=== PATIENT | female | born 1960 | race American Indian/Alaskan Native ===

== ENCOUNTER 2018-08-23 22:10 | Inpatient (IN) | payer MEDICAID ==
[2018-08-23] MEDS ORDERED: Acetaminophen 325 MG Tab PO ONE (22:43)
--- NOTE | 2018-08-23 22:49 | EDM.PDOC ---
<Enriqueta Sol Joelle - Last Filed: 08/23/18 22:44> ED HPI GENERAL MEDICAL PROBLEM - General Chief Complaint: Neurological Problem Stated Complaint: POSS SEIZURE Time Seen by Provider: 08/23/18 22:32 Source of Information: Reports: Patient, RN Notes Reviewed History Limitations: Reports: No Limitations - History of Present Illness INITIAL COMMENTS - FREE TEXT/NARRATIVE: Patient is a 58-year-old female who presents to the ED for evaluation of a possible seizure. The patient states that at about 7:00 this evening she developed full body shaking. She states she was home alone at this occurred. She also states she was in bed and started shaking all over uncontrollably. She states that she could get up and walk but was still shaking at this time, so she decided to go back to bed. She also notes that this lasted about a half hour. The patient states that she feels somewhat tired now, and does not feel her normal self. The patient states she did not lose control of her bladder after this. She was aware of what was happening when it was happening and after it was happening. The patient does note that she does not have a history of seizures. She also states that she has a history of COPD, and has had a cold for around one or 2 months. The patient states that she has had some low- grade fevers at home as well. The patient is alert and oriented 3. Headache Pain Score (Numeric/FACES): 8 Posterior Back Pain Score (Numeric/FACES): 8 - Related Data Allergies Allergy/AdvReac Type Severity Reaction Status Date / Time codeine Allergy Rash Verified 03/10/15 00:43 Home Meds: Home Meds Hydrocodone/Acetaminophen [[place] 7.5-325] 1 each PO Q8H PRN #20 tablet 03/10/15 [Rx] Albuterol [Proventil HFA] 1 puff INH ASDIRECTED 08/23/18 [History] Budesonide/Formoterol [Symbicort 160-4.5 MCG] 1 puff INH DAILY 08/23/18 [History ] Citalopram Hydrobromide [Celexa] 0 mg PO DAILY 08/23/18 [History] Famotidine 20 mg PO DAILY 08/23/18 [History] Gabapentin [Neurontin] 6,090 mg PO QID 08/23/18 [History] Oxybutynin 5 mg PO DAILY 08/23/18 [History] Past Medical History Respiratory History: Reports: COPD, Intubation, Previous, Other (See Below) Other Respiratory History: trach due to overdose Musculoskeletal History: Reports: Back Pain, Chronic Neurological History: Reports: Neuropathy, Peripheral Psychiatric History: Reports: Depression Social & Family History - Tobacco Use Smoking Status *Q: Current Every Day Smoker Years of Tobacco use: 4 Packs/Tins Daily: 0.4 - Caffeine Use Caffeine Use: Reports: Coffee, Soda - Recreational Drug Use Recreational Drug Use: No Other Recreational Drug Type: over dose on script meds about 6 yrs ago ED ROS GENERAL - Review of Systems Review Of Systems: See Below Constitutional: Reports: Fever, Chills (rigors), Fatigue HEENT: Reports: No Symptoms Respiratory: Reports: Cough Cardiovascular: Reports: No Symptoms Endocrine: Reports: No Symptoms GI/Abdominal: Reports: No Symptoms : Reports: No Symptoms Musculoskeletal: Reports: No Symptoms Skin: Reports: No Symptoms Neurological: Reports: Headache. Denies: Pre-Existing Deficit, Syncope Psychiatric: Reports: No Symptoms Hematologic/Lymphatic: Reports: No Symptoms Immunologic: Reports: No Symptoms ED EXAM, SEPSIS - Physical Exam Exam: See Below Exam Limited By: No Limitations General Appearance: Alert, WD/WN, No Apparent Distress, Lethargic (patient is easily arousable and answers questions appropriately.) Throat/Mouth: Normal Inspection, Normal Lips, Normal Teeth, Normal Gums, Normal Oropharynx, Normal Voice, No Airway Compromise Head: Atraumatic, Normocephalic Neck: Normal Inspection Respiratory/Chest: No Respiratory Distress, No Accessory Muscle Use, Chest Non- Tender, Decreased Breath Sounds (diffuse bilaterally), Rhonchi (mainly over right lung field, but present bilateral) Cardiovascular: Normal Peripheral Pulses, Regular Rate, Rhythm, No Murmur GI/Abdominal Exam: Normal Bowel Sounds, Soft, No Distention, No Mass, Tender ( generalized abdominal tenderness) Extremities: Normal Inspection, Normal Capillary Refill Neurological: Alert, Oriented, Normal Cognition, No Motor/Sensory Deficits Psychiatric: Normal Affect, Normal Mood Skin: Warm (pt is warm to the touch), Dry, Intact, Normal Color, No Rash Course - Vital Signs Last Recorded V/S: Last Vital Signs Temp 37.1 C 08/23/18 23:40 Pulse 86 08/23/18 22:42 Resp 26 H 08/23/18 22:42 BP 100/71 08/23/18 22:42 Pulse Ox 93 L 08/23/18 23:50 - Orders/Labs/Meds Orders: Active Orders 24 hr Category Date Time Status Patient Status [ADT] Routine ADT 08/24/18 00:39 Active RT Aerosol Therapy [RC] ASDIRECTED Care 08/23/18 22:55 Active Chest 2V [CR] Stat Exams 08/23/18 22:42 Taken CULTURE BLOOD [BC] Stat Lab 08/23/18 23:05 Received CULTURE BLOOD [BC] Stat Lab 08/23/18 23:05 Received CULTURE URINE [RM] Stat Lab 08/23/18 22:56 Received Sodium Chloride 0.9% [Normal Saline] 1,000 ml Med 08/23/18 23:00 Active IV ASDIRECTED Sodium Chloride 0.9% [Saline Flush] Med 08/23/18 22:54 Active 10 ml FLUSH ASDIRECTED PRN Blood Culture x2 Reflex Set [OM.PC] Stat Oth 08/23/18 22:41 Ordered Peripheral IV Insertion Adult [OM.PC] Routine Oth 08/23/18 22:54 Ordered Medication Orders Sodium Chloride (Normal Saline) 1,000 mls @ 150 mls/hr IV ASDIRECTED [facility] Last Admin: 08/23/18 23:41 Dose: 150 mls/hr Sodium Chloride (Saline Flush) 10 ml FLUSH ASDIRECTED PRN PRN Reason: Keep Vein Open Last Admin: 08/23/18 23:41 Dose: 10 ml Labs: Laboratory Tests 08/23/18 08/23/18 08/23/18 Range/Units 22:56 22:56 23:05 WBC 13.39 H (3.98-10.04) K/mm3 RBC 5.65 H (3.98-5.22) M/mm3 Hgb 11.6 (11.2-15.7) gm/L Hct 38.0 (34.1-44.9) % MCV 67.3 L (79.4-94.8) fl MCH 20.5 L (25.6-32.2) pg MCHC 30.5 L (32.2-35.5) g/dl RDW Std Deviation 43.3 (36.4-46.3) fL Plt Count 317 (182-369) K/mm3 MPV 11.7 (9.4-12.3) fl Neutrophils % (Manual) 76 H (40-60) % Band Neutrophils % 1 (0-10) % Lymphocytes % (Manual) 16 L (20-40) % Atypical Lymphs % 0 % Monocytes % (Manual) 7 (2-10) % Eosinophils % (Manual) 0 L (0.7-5.8) % Basophils % (Manual) 0 L (0.1-1.2) Platelet Estimate Adequate Plt Morphology Comment See note Hypochromasia 2+ moderate Microcytosis 2+ moderate Target Cells 1+ slight RBC Morph Comment Not Reportable Sodium (136-145) mEq/L Potassium (3.5-5.1) mEq/L Chloride (98-107) mEq/L Carbon Dioxide (21-32) mEq/L Anion Gap (5-15) BUN (7-18) mg/dL Creatinine (0.55-1.02) mg/dL Est Cr Clr Drug Dosing mL/min Estimated GFR (MDRD) (>60) mL/min BUN/Creatinine Ratio (14-18) Glucose (74-106) mg/dL Lactic Acid (0.4-2.0) mmol/L Calcium (8.5-10.1) mg/dL Magnesium (1.8-2.4) mg/dl Total Bilirubin (0.2-1.0) mg/dL AST (15-37) U/L ALT (14-59) U/L Alkaline Phosphatase (46-116) U/L C-Reactive Protein (<1.0) mg/dL NT-Pro-B Natriuret Pep (0-125) pg/mL Total Protein (6.4-8.2) g/dl Albumin (3.4-5.0) g/dl Globulin gm/dL Albumin/Globulin Ratio (1-2) Urine Color Yellow (Yellow) Urine Appearance Cloudy H (Clear) Urine pH 6.5 (5.0-8.0) Ur Specific [place] 1.015 (1.005-1.030) Urine Protein Trace H (Negative) Urine Glucose (UA) Negative (Negative) Urine Ketones Negative (Negative) Urine Occult Blood Negative (Negative) Urine Nitrite Positive H (Negative) Urine Bilirubin Negative (Negative) Urine Urobilinogen 0.2 (0.2-1.0) Ur Leukocyte Esterase 2+ H (Negative) Urine RBC Not seen (0-5) /hpf Urine WBC 5-10 H (0-5) /hpf Urine WBC Clumps Rare (NOT SEEN) /hpf Ur Squamous Epith Cells 0-5 (0-5) /hpf Urine Bacteria Many H (FEW) /hpf Hyaline Casts 0-5 (0-5) /lpf Urine Mucus Rare (FEW) /hpf Urine Opiates Screen Negative (UTJADH=540) Ur Buprenorphine Scrn Negative (CUTOFF=10) Ur Oxycodone Screen Negative (DFZ9ZX=553) Urine Methadone Screen Negative (WEYINC=564) Ur Propoxyphene Screen Negative (MWCDQI=556) Ur Barbiturates Screen Negative (YIUKII=372) Ur Tricyclics Screen Negative (QADSTE=671) Ur Phencyclidine Scrn Negative (CUTOFF=25) Ur Amphetamine Screen Negative (JNPFIG=898) U Methamphetamines Scrn Negative (PSIROO=845) U Benzodiazepines Scrn Presumptive positive H (AVAGOS=876) U Cocaine Metab Screen Negative (OBINMZ=611) U Marijuana (THC) Screen Negative (CUTOFF=50) 08/23/18 08/23/18 08/23/18 Range/Units 23:05 23:05 23:05 WBC (3.98-10.04) K/mm3 RBC (3.98-5.22) M/mm3 Hgb (11.2-15.7) gm/L Hct (34.1-44.9) % MCV (79.4-94.8) fl MCH (25.6-32.2) pg MCHC (32.2-35.5) g/dl RDW Std Deviation (36.4-46.3) fL Plt Count (182-369) K/mm3 MPV (9.4-12.3) fl Neutrophils % (Manual) (40-60) % Band Neutrophils % (0-10) % Lymphocytes % (Manual) (20-40) % Atypical Lymphs % % Monocytes % (Manual) (2-10) % Eosinophils % (Manual) (0.7-5.8) % Basophils % (Manual) (0.1-1.2) Platelet Estimate Plt Morphology Comment Hypochromasia Microcytosis Target Cells RBC Morph Comment Sodium 137 (136-145) mEq/L Potassium 3.9 (3.5-5.1) mEq/L Chloride 102 (98-107) mEq/L Carbon Dioxide 25 (21-32) mEq/L Anion Gap 13.9 (5-15) BUN 12 (7-18) mg/dL Creatinine 1.0 (0.55-1.02) mg/dL Est Cr Clr Drug Dosing 51.96 mL/min Estimated GFR (MDRD) 57 (>60) mL/min BUN/Creatinine Ratio 12.0 L (14-18) Glucose 118 H (74-106) mg/dL Lactic Acid 1.1 (0.4-2.0) mmol/L Calcium 8.9 (8.5-10.1) mg/dL Magnesium 2.0 (1.8-2.4) mg/dl Total Bilirubin 0.8 (0.2-1.0) mg/dL AST 30 (15-37) U/L ALT 29 (14-59) U/L Alkaline Phosphatase 218 H (46-116) U/L C-Reactive Protein 0.7 (<1.0) mg/dL NT-Pro-B Natriuret Pep 54 (0-125) pg/mL Total Protein 7.8 (6.4-8.2) g/dl Albumin 3.6 (3.4-5.0) g/dl Globulin 4.2 gm/dL Albumin/Globulin Ratio 0.9 L (1-2) Urine Color (Yellow) Urine Appearance (Clear) Urine pH (5.0-8.0) Ur Specific [place] (1.005-1.030) Urine Protein (Negative) Urine Glucose (UA) (Negative) Urine Ketones (Negative) Urine Occult Blood (Negative) Urine Nitrite (Negative) Urine Bilirubin (Negative) Urine Urobilinogen (0.2-1.0) Ur Leukocyte Esterase (Negative) Urine RBC (0-5) /hpf Urine WBC (0-5) /hpf Urine WBC Clumps (NOT SEEN) /hpf Ur Squamous Epith Cells (0-5) /hpf Urine Bacteria (FEW) /hpf Hyaline Casts (0-5) /lpf Urine Mucus (FEW) /hpf Urine Opiates Screen (YJSUOI=196) Ur Buprenorphine Scrn (CUTOFF=10) Ur Oxycodone Screen (EOD4TH=336) Urine Methadone Screen (URFNUH=721) Ur Propoxyphene Screen (WSTVAJ=652) Ur Barbiturates Screen (ZOUQOX=167) Ur Tricyclics Screen (EZSCMU=045) Ur Phencyclidine Scrn (CUTOFF=25) Ur Amphetamine Screen (ZBUOOX=557) U Methamphetamines Scrn (QYTNMP=028) U Benzodiazepines Scrn (LNWZMY=199) U Cocaine Metab Screen (VODQKJ=458) U Marijuana (THC) Screen (CUTOFF=50) Meds: Medications Generic Name Dose Route Start Last Admin Trade Name Freq PRN Reason Stop Dose Admin Sodium Chloride 1,000 mls @ 150 mls/hr 08/23/18 23:00 08/23/18 23:41 Normal Saline IV 150 mls/hr ASDIRECTED KAILEE Administration Sodium Chloride 10 ml 08/23/18 22:54 08/23/18 23:41 Saline Flush FLUSH 10 ml ASDIRECTED PRN Administration Keep Vein Open Discontinued Medications Generic Name Dose Route Start Last Admin Trade Name Freq PRN Reason Stop Dose Admin Acetaminophen 650 mg 08/23/18 22:43 08/23/18 23:40 Tylenol PO 08/23/18 22:44 650 mg NOW ONE Administration Albuterol/Ipratropium 3 ml 08/23/18 22:55 08/23/18 23:02 Duoneb 3.0-0.5 Mg/3 Ml NEB 08/23/18 22:56 3 ml ONETIME ONE Administration - Re-Assessments/Exams Free Text/Narrative Re-Assessment/Exam: 08/23/18 22:53 Patient presents to the ED for evaluation of a possible seizure. Upon talking with the patient I do not believe that she did have a seizure at this time. Is more likely that she has a febrile illness that caused her to go into rigors. She states that she has had a cough with some fevers for the last month, and has a history of COPD. Have ordered a CBC, CMP, blood cultures 2, CRP, lactic acid, a UA, Urine drug screen, Magnesium, BNP, chest x-ray, IV fluids, Duoneb, O2 PRN and 650 mg Tylenol for initial management. This case was discussed with Dr. Giordano at this time and he will take over management from here. Departure - Departure Disposition: Admitted As Inpatient 68 Clinical Impression: Acute febrile illness, Pyelonephritis of left kidney, Hypoxia, Iron deficiency anemia COPD (chronic obstructive pulmonary disease) with emphysema Qualifiers: Emphysema type: panlobular Qualified Code(s): J43.1 - Panlobular emphysema - Discharge Information - My Orders Last 24 Hours: My Active Orders 08/23/18 22:56 CULTURE URINE [RM] Stat 08/24/18 00:39 Patient Status [ADT] Routine - Assessment/Plan Last 24 Hours: My Active Orders 08/23/18 22:56 CULTURE URINE [RM] Stat 08/24/18 00:39 Patient Status [ADT] Routine <Colby Giordano - Last Filed: 08/24/18 01:06> Course - Re-Assessments/Exams Free Text/Narrative Re-Assessment/Exam: 08/23/18 23:35 Care assumed from CHAVA Sol. Two-view chest x-ray is rotated significantly to the right side making the left hilum look more prominent than normal. Overall the lungs are clear. There is no sign of the consolidated pneumonia. The pulmonary arteries are fairly prominent bilaterally. Cardiac silhouette is normal. Part of the labs are back.White count is elevated at 13.39 with differential pending. Hemoglobin is low 11.6 with hematocrit of 38.0. MCV is low at 67.3 indicating significant and deficiency. Platelet count is 317,000. The urinalysis shows 2+ leukocyte esterase. It is also nitrate positive. Patient will be started on Rocephin 2 g IV. On my examination she has marked tenderness over the left costovertebral angle suggesting left-sided pyelonephritis as a cause of her rigors and chills. 08/24/18 00:21 Lactic acid returned at 1.1. Differential still not yet available on the hematology. The remainder of the slide for the urine shows 5- 10 WBCs per high-power field with many bacteria appreciated. Rare urine white blood cell clumps. The urine drug screen was positive for benzodiazepines. 08/24/18 00:48 Differential reveals 76% neutrophils and 1% band cells. There is 2+ hypochromasia 2+ microcytosis and 1+ target cells. This suggests some component of iron deficiency. This correlates with MCV very low at 67.3. I will order her total iron binding capacity and serum iron levels to be done in the morning with serum Ferritin. Discussed the case with Dr. Rolle gas operation manager hospitalist and the plan will be to admit her to the MedSurg floor. Patient will remain on oxygen at 2 L/m since her sats in the ED where around 90-92%. She has known quite significant COPD. Will also place her on DuoNeb every 6 hours while in hospital. She will start the Rocephin 2 g IV once she gets admitted to the med surgery floor. Bridge orders were written. Departure - Departure Time of Disposition: 01:04 Condition: Fair - Discharge Information *PRESCRIPTION DRUG MONITORING PROGRAM REVIEWED*: No *COPY OF PRESCRIPTION DRUG MONITORING REPORT IN PATIENT LORAINE: No - My Orders Last 24 Hours: My Active Orders 08/23/18 22:56 CULTURE URINE [RM] Stat 08/24/18 00:39 Patient Status [ADT] Routine - Assessment/Plan Last 24 Hours: My Active Orders 08/23/18 22:56 CULTURE URINE [RM] Stat 08/24/18 00:39 Patient Status [ADT] Routine
[2018-08-23] MEDS ORDERED: Sodium Chloride 0.9% 10 ML Syringe FLUSH PRN (22:54)
[2018-08-23] MEDS ORDERED: Albuterol/Ipratropium 3.0-0.5 MG/3 ML Neb Soln NEB ONE (22:55)
[2018-08-23] MEDS ORDERED: Sodium Chloride 0.9% 1,000 ML IV SCH (23:00)
[2018-08-24] MEDS ORDERED: Metoclopramide 10 MG/2 ML SDV IVPUSH PRN (01:40)
[2018-08-24] MEDS: Dextrose 5%-0.9% NaCl with KCl 1,000 ML IV SCH ×2 (02:17→10:40)
[2018-08-24] MEDS: cefTRIAXone 2 GM in Sodium Chloride 0.9% 100 ML IV SCH (02:18)
[2018-08-24] MEDS: Albuterol/Ipratropium 3.0-0.5 MG/3 ML Neb Soln NEB SCH ×4 (03:03→21:18)
[2018-08-24] MEDS: Ibuprofen 600 MG Tab PO PRN ×3 (05:01→18:43)
--- NOTE | 2018-08-24 06:37 | PCM.HP ---
H&P History of Present Illness - General Date of Service: 08/24/18 Admit Problem/Dx: Admission Diagnosis/Problem Admission Diagnosis/Problem Pyelonephritis Source of Information: Patient, Provider, RN, RN Notes Reviewed History Limitations: Reports: No Limitations - History of Present Illness Initial Comments - Free Text/Narative: Patricia Smith is a 58 yo female who presented to our ED in the overnight hours with concerns over possible seizure. She reports that around 1900 she developed full body shaking. She says she was in bed when this started and she was alone. She reports she got up and walked around and went back to bed and the whole episode lasted about a half hour. She reports she now feels tired. She did not lose bowel or bladder control and does not have a history of seizures. She reports she has a history of COPD and has a had a cold for one or 2 months. She also reports low-grade fevers at home. In the ED temp was 37.1 Celsius. Pulse 86. Respirations 26. Blood pressure 100/71. Pulse ox 93%. Labs were obtained showing a WBC of 13.39. Hemoglobin 11.6. Hematocrit 38. She is microcytic. Neutrophils are elevated at 76%. There is 1% band neutrophils noted. UA was positive with cloudy urine, trace protein, positive nitrite, 2+ leukocyte esterase, 5-10 WBCs, and many bacteria. UDS was obtained and was positive for benzodiazepines. Sodium was 137. Potassium 3.9. Chloride 102. Carbon dioxide 25. Anion gap is 13.9. BUN is 12. Creatinine 1.0. GFR was 57. Glucose was 118. Lactic acid 1.1. Calcium 8.9. Magnesium 2.0. Bilirubin 0.8. AST was 30, ALT 29, alkaline phosphatase 218. CRP was 0.7. ProBNP was 54. Protein was 7.8. Albumin 3.6. As noted in the ED note she likely did not have a seizure and it is more probable that she was having rigors from infection. Chest x-ray is obtained and shows nothing acute. She is noted to have tenderness in her left costovertebral angle suggesting left-sided pyelonephritis. She started on Rocephin 2 g IV. She is noted to have saturations of 90-92% was started on 2 L of oxygen she is known to have significant COPD and is a daily smoker. She carries a history of COPD with prior intubation, prior trach due to overdose , chronic back pain, peripheral neuropathy, depression. Her PCP is [facility]. She is a full code. She subsequently admitted to the medical floor for management of her UTI/pyelonephritis. Headache Pain Score (Numeric/FACES): 8 Posterior Back Pain Score (Numeric/FACES): 8 Left posterior flank Pain Score (Numeric/FACES): 6 - Related Data Allergies/Adverse Reactions: Allergies Allergy/AdvReac Type Severity Reaction Status Date / Time codeine Allergy Rash Verified 08/24/18 01:42 Home Medications: Home Meds Albuterol [Proventil HFA] 2 puff INH Q4HR 08/23/18 [History] Budesonide/Formoterol [Symbicort 160-4.5 MCG] 2 puff INH BID 08/23/18 [History] Citalopram Hydrobromide [Celexa] 40 mg PO DAILY 08/23/18 [History] Oxybutynin 5 mg PO BID 08/23/18 [History] ARIPiprazole [Abilify] 5 mg PO DAILY 08/24/18 [History] Cetirizine [ZyrTEC] 10 mg PO DAILY 08/24/18 [History] Eletriptan HBr 40 mg PO ASDIRECTED PRN 08/24/18 [History] Esomeprazole Magnesium 40 mg PO DAILY 08/24/18 [History] Gabapentin [Neurontin] 600 mg PO QID 08/24/18 [History] Montelukast [Singulair] 10 mg PO BEDTIME 08/24/18 [History] OLANZapine [Olanzapine] 5 mg PO DAILY 08/24/18 [History] Pantoprazole [ProTONIX] 40 mg PO DAILY 08/24/18 [History] Tiotropium [Spiriva HandiHaler] 1 cap INH DAILY 08/24/18 [History] Past Medical History HEENT History: Reports: Impaired Vision Respiratory History: Reports: Bronchitis, Recurrent, COPD, Intubation, Previous , Other (See Below) Other Respiratory History: trach due to overdose Genitourinary History: Reports: Urinary Incontinence 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: Reports: Musculoskeletal History: Reports: Back Pain, Chronic Neurological History: Reports: Neuropathy, Peripheral Psychiatric History: Reports: Depression Endocrine/Metabolic History: Reports: Obesity/BMI 30+ Social & Family History - Family History Family Medical History: Unobtainable - Tobacco Use Smoking Status *Q: Current Every Day Smoker Years of Tobacco use: 4 Packs/Tins Daily: 0.5 Used Tobacco, but Quit: No Second Hand Smoke Exposure: No - Caffeine Use Caffeine Use: Reports: Coffee Other Caffeine Use: 2-3 large cups - Recreational Drug Use Recreational Drug Use: No Other Recreational Drug Type: over dose on script meds about 6 yrs ago H&P Review of Systems - Review of Systems: Review Of Systems: See Below General: Reports: Chills (room is cold - thermostat adjusted ), Weakness, Fatigue, Other (rigors ). Denies: Fever HEENT: Denies: Headaches, Sore Throat Pulmonary: Reports: Cough. Denies: Shortness of Breath, Wheezing, Pleuritic Chest Pain, Sputum Cardiovascular: Reports: No Symptoms. Denies: Chest Pain, Palpitations, Edema Gastrointestinal: Reports: No Symptoms. Denies: Abdominal Pain, Constipation, Diarrhea, Nausea, Vomiting Genitourinary: Reports: No Symptoms Musculoskeletal: Reports: Back Pain (chronic ) Skin: Reports: No Symptoms. Denies: Cyanosis Psychiatric: Reports: No Symptoms. Denies: Confusion Neurological: Reports: No Symptoms. Denies: Confusion Hematologic/Lymphatic: Reports: No Symptoms Immunologic: Reports: No Symptoms Exam - Exam Exam: See Below - Vital Signs Vital Signs: Last Vital Signs Temp 97.9 F 08/24/18 05:00 Pulse 72 08/24/18 05:00 Resp 16 08/24/18 05:00 BP 100/50 L 08/24/18 05:00 Pulse Ox 99 08/24/18 05:00 Weight: 192 lb 6.4 oz - Exam Quality Assessment: DVT Prophylaxis. No: Supplemental Oxygen (Weaned off) General: Alert, Oriented, Cooperative. No: Mild Distress HEENT: Conjunctiva Clear, EACs Clear, EOMI, Hearing Intact, Mucosa Moist & Erwin , Nares Patent, Posterior Pharynx Clear, PERRLA Neck: Supple, Trachea Midline Lungs: Normal Respiratory Effort, Decreased Breath Sounds Cardiovascular: Regular Rate, Regular Rhythm GI/Abdominal Exam: Normal Bowel Sounds, Soft, Non-Tender, No Distention, No Abnormal Bruit (Female) Exam: Deferred Rectal (Female) Exam: Deferred Back Exam: Normal Inspection, Full Range of Motion, CVA Tenderness (L). No: CVA Tenderness (R) Extremities: Normal Inspection, Normal Range of Motion, Non-Tender, No Pedal Edema, Normal Capillary Refill Peripheral Pulses: 2+: Radial (L), Radial (R), Dorsalis Pedis (L), Dorsalis Pedis (R) Skin: Warm, Dry, Intact Neurological: Cranial Nerves Intact (Grossly ) Neuro Extensive - Mental Status: Alert, Oriented x3 - Patient Data Lab Results Last 24 hrs: Laboratory Results - last 24 hr 08/23/18 08/23/18 08/23/18 Range/Units 22:56 22:56 23:05 WBC 13.39 H (3.98-10.04) K/mm3 RBC 5.65 H (3.98-5.22) M/mm3 Hgb 11.6 (11.2-15.7) gm/L Hct 38.0 (34.1-44.9) % MCV 67.3 L (79.4-94.8) fl MCH 20.5 L (25.6-32.2) pg MCHC 30.5 L (32.2-35.5) g/dl RDW Std Deviation 43.3 (36.4-46.3) fL Plt Count 317 (182-369) K/mm3 MPV 11.7 (9.4-12.3) fl Neutrophils % (Manual) 76 H (40-60) % Band Neutrophils % 1 (0-10) % Lymphocytes % (Manual) 16 L (20-40) % Atypical Lymphs % 0 % Monocytes % (Manual) 7 (2-10) % Eosinophils % (Manual) 0 L (0.7-5.8) % Basophils % (Manual) 0 L (0.1-1.2) Platelet Estimate Adequate Plt Morphology Comment See note Hypochromasia 2+ moderate Poikilocytosis Anisocytosis Microcytosis 2+ moderate Target Cells 1+ slight RBC Morph Comment Not Reportable Sodium (136-145) mEq/L Potassium (3.5-5.1) mEq/L Chloride (98-107) mEq/L Carbon Dioxide (21-32) mEq/L Anion Gap (5-15) BUN (7-18) mg/dL Creatinine (0.55-1.02) mg/dL Est Cr Clr Drug Dosing mL/min Estimated GFR (MDRD) (>60) mL/min BUN/Creatinine Ratio (14-18) Glucose (74-106) mg/dL Lactic Acid (0.4-2.0) mmol/L Calcium (8.5-10.1) mg/dL Magnesium (1.8-2.4) mg/dl Total Bilirubin (0.2-1.0) mg/dL AST (15-37) U/L ALT (14-59) U/L Alkaline Phosphatase (46-116) U/L C-Reactive Protein (<1.0) mg/dL NT-Pro-B Natriuret Pep (0-125) pg/mL Total Protein (6.4-8.2) g/dl Albumin (3.4-5.0) g/dl Globulin gm/dL Albumin/Globulin Ratio (1-2) Urine Color Yellow (Yellow) Urine Appearance Cloudy H (Clear) Urine pH 6.5 (5.0-8.0) Ur Specific [place] 1.015 (1.005-1.030) Urine Protein Trace H (Negative) Urine Glucose (UA) Negative (Negative) Urine Ketones Negative (Negative) Urine Occult Blood Negative (Negative) Urine Nitrite Positive H (Negative) Urine Bilirubin Negative (Negative) Urine Urobilinogen 0.2 (0.2-1.0) Ur Leukocyte Esterase 2+ H (Negative) Urine RBC Not seen (0-5) /hpf Urine WBC 5-10 H (0-5) /hpf Urine WBC Clumps Rare (NOT SEEN) /hpf Ur Squamous Epith Cells 0-5 (0-5) /hpf Urine Bacteria Many H (FEW) /hpf Hyaline Casts 0-5 (0-5) /lpf Urine Mucus Rare (FEW) /hpf Urine Opiates Screen Negative (HJHPIR=256) Ur Buprenorphine Scrn Negative (CUTOFF=10) Ur Oxycodone Screen Negative (WLR7FX=354) Urine Methadone Screen Negative (HCJWPE=943) Ur Propoxyphene Screen Negative (LOBCAX=683) Ur Barbiturates Screen Negative (YPGXIH=930) Ur Tricyclics Screen Negative (NZCOHI=595) Ur Phencyclidine Scrn Negative (CUTOFF=25) Ur Amphetamine Screen Negative (YJSVNJ=112) U Methamphetamines Scrn Negative (NBYYVC=602) U Benzodiazepines Scrn Presumptive positive H (DAVIPX=361) U Cocaine Metab Screen Negative (IDKXDD=591) U Marijuana (THC) Screen Negative (CUTOFF=50) 08/23/18 08/23/18 08/23/18 Range/Units 23:05 23:05 23:05 WBC (3.98-10.04) K/mm3 RBC (3.98-5.22) M/mm3 Hgb (11.2-15.7) gm/L Hct (34.1-44.9) % MCV (79.4-94.8) fl MCH (25.6-32.2) pg MCHC (32.2-35.5) g/dl RDW Std Deviation (36.4-46.3) fL Plt Count (182-369) K/mm3 MPV (9.4-12.3) fl Neutrophils % (Manual) (40-60) % Band Neutrophils % (0-10) % Lymphocytes % (Manual) (20-40) % Atypical Lymphs % % Monocytes % (Manual) (2-10) % Eosinophils % (Manual) (0.7-5.8) % Basophils % (Manual) (0.1-1.2) Platelet Estimate Plt Morphology Comment Hypochromasia Poikilocytosis Anisocytosis Microcytosis Target Cells RBC Morph Comment Sodium 137 (136-145) mEq/L Potassium 3.9 (3.5-5.1) mEq/L Chloride 102 (98-107) mEq/L Carbon Dioxide 25 (21-32) mEq/L Anion Gap 13.9 (5-15) BUN 12 (7-18) mg/dL Creatinine 1.0 (0.55-1.02) mg/dL Est Cr Clr Drug Dosing 51.96 mL/min Estimated GFR (MDRD) 57 (>60) mL/min BUN/Creatinine Ratio 12.0 L (14-18) Glucose 118 H (74-106) mg/dL Lactic Acid 1.1 (0.4-2.0) mmol/L Calcium 8.9 (8.5-10.1) mg/dL Magnesium 2.0 (1.8-2.4) mg/dl Total Bilirubin 0.8 (0.2-1.0) mg/dL AST 30 (15-37) U/L ALT 29 (14-59) U/L Alkaline Phosphatase 218 H (46-116) U/L C-Reactive Protein 0.7 (<1.0) mg/dL NT-Pro-B Natriuret Pep 54 (0-125) pg/mL Total Protein 7.8 (6.4-8.2) g/dl Albumin 3.6 (3.4-5.0) g/dl Globulin 4.2 gm/dL Albumin/Globulin Ratio 0.9 L (1-2) Urine Color (Yellow) Urine Appearance (Clear) Urine pH (5.0-8.0) Ur Specific [place] (1.005-1.030) Urine Protein (Negative) Urine Glucose (UA) (Negative) Urine Ketones (Negative) Urine Occult Blood (Negative) Urine Nitrite (Negative) Urine Bilirubin (Negative) Urine Urobilinogen (0.2-1.0) Ur Leukocyte Esterase (Negative) Urine RBC (0-5) /hpf Urine WBC (0-5) /hpf Urine WBC Clumps (NOT SEEN) /hpf Ur Squamous Epith Cells (0-5) /hpf Urine Bacteria (FEW) /hpf Hyaline Casts (0-5) /lpf Urine Mucus (FEW) /hpf Urine Opiates Screen (GCHCFZ=346) Ur Buprenorphine Scrn (CUTOFF=10) Ur Oxycodone Screen (EYT3RO=251) Urine Methadone Screen (SNPGNU=231) Ur Propoxyphene Screen (QIVNRG=935) Ur Barbiturates Screen (YPSYFW=517) Ur Tricyclics Screen (DWYDOI=856) Ur Phencyclidine Scrn (CUTOFF=25) Ur Amphetamine Screen (NRPWPG=692) U Methamphetamines Scrn (PLBYFQ=861) U Benzodiazepines Scrn (ZHOPGP=983) U Cocaine Metab Screen (RLKREY=078) U Marijuana (THC) Screen (CUTOFF=50) 08/24/18 Range/Units 04:35 WBC 9.81 (3.98-10.04) K/mm3 RBC 5.02 (3.98-5.22) M/mm3 Hgb 10.2 L (11.2-15.7) gm/L Hct 33.9 L (34.1-44.9) % MCV 67.5 L (79.4-94.8) fl MCH 20.3 L (25.6-32.2) pg MCHC 30.1 L (32.2-35.5) g/dl RDW Std Deviation 43.4 (36.4-46.3) fL Plt Count 291 (182-369) K/mm3 MPV 11.5 (9.4-12.3) fl Neutrophils % (Manual) 63 H (40-60) % Band Neutrophils % 0 (0-10) % Lymphocytes % (Manual) 25 (20-40) % Atypical Lymphs % 0 % Monocytes % (Manual) 11 H (2-10) % Eosinophils % (Manual) 0 L (0.7-5.8) % Basophils % (Manual) 1 (0.1-1.2) Platelet Estimate Adequate Plt Morphology Comment Hypochromasia Poikilocytosis 1+ slight Anisocytosis 1+ slight Microcytosis Target Cells RBC Morph Comment Not Reportable Sodium (136-145) mEq/L Potassium (3.5-5.1) mEq/L Chloride (98-107) mEq/L Carbon Dioxide (21-32) mEq/L Anion Gap (5-15) BUN (7-18) mg/dL Creatinine (0.55-1.02) mg/dL Est Cr Clr Drug Dosing mL/min Estimated GFR (MDRD) (>60) mL/min BUN/Creatinine Ratio (14-18) Glucose (74-106) mg/dL Lactic Acid (0.4-2.0) mmol/L Calcium (8.5-10.1) mg/dL Magnesium (1.8-2.4) mg/dl Total Bilirubin (0.2-1.0) mg/dL AST (15-37) U/L ALT (14-59) U/L Alkaline Phosphatase (46-116) U/L C-Reactive Protein (<1.0) mg/dL NT-Pro-B Natriuret Pep (0-125) pg/mL Total Protein (6.4-8.2) g/dl Albumin (3.4-5.0) g/dl Globulin gm/dL Albumin/Globulin Ratio (1-2) Urine Color (Yellow) Urine Appearance (Clear) Urine pH (5.0-8.0) Ur Specific [place] (1.005-1.030) Urine Protein (Negative) Urine Glucose (UA) (Negative) Urine Ketones (Negative) Urine Occult Blood (Negative) Urine Nitrite (Negative) Urine Bilirubin (Negative) Urine Urobilinogen (0.2-1.0) Ur Leukocyte Esterase (Negative) Urine RBC (0-5) /hpf Urine WBC (0-5) /hpf Urine WBC Clumps (NOT SEEN) /hpf Ur Squamous Epith Cells (0-5) /hpf Urine Bacteria (FEW) /hpf Hyaline Casts (0-5) /lpf Urine Mucus (FEW) /hpf Urine Opiates Screen (YIQNPW=183) Ur Buprenorphine Scrn (CUTOFF=10) Ur Oxycodone Screen (OBD6XX=325) Urine Methadone Screen (EBQRTA=775) Ur Propoxyphene Screen (VVCQUZ=960) Ur Barbiturates Screen (KWIQAX=647) Ur Tricyclics Screen (HNBQDS=807) Ur Phencyclidine Scrn (CUTOFF=25) Ur Amphetamine Screen (PGAQAK=746) U Methamphetamines Scrn (YGSAEE=451) U Benzodiazepines Scrn (CQTGOU=301) U Cocaine Metab Screen (NSPAWF=596) U Marijuana (THC) Screen (CUTOFF=50) Result Diagrams: 08/24/18 04:35 08/23/18 23:05 - Problem List (1) Pyelonephritis of left kidney SNOMED Code(s): 01527248 ICD Code: N12 - TUBULO-INTERSTITIAL NEPHRITIS, NOT SPCF ACUTE OR CHRONIC Status: Acute Priority: High Current Visit: Yes (2) Chronic back pain SNOMED Code(s): 045145222 ICD Code: M54.9 - DORSALGIA, UNSPECIFIED; G89.29 - OTHER CHRONIC PAIN Status: Chronic Priority: Medium Current Visit: No Qualifiers: Back pain location: back pain in unspecified location Back pain laterality : unspecified Qualified Code(s): M54.9 - Dorsalgia, unspecified; G89.29 - Other chronic pain (3) Peripheral neuropathy SNOMED Code(s): 222103968 ICD Code: G62.9 - POLYNEUROPATHY, UNSPECIFIED Status: Chronic Priority: Medium Current Visit: No Qualifiers: Peripheral neuropathy type: polyneuropathy, unspecified Qualified Code(s): G62.9 - Polyneuropathy, unspecified (4) Acute febrile illness SNOMED Code(s): 919115924 ICD Code: R50.9 - FEVER, UNSPECIFIED Status: Acute Priority: High Current Visit: Yes (5) COPD (chronic obstructive pulmonary disease) with emphysema SNOMED Code(s): 62929421 ICD Code: J43.9 - EMPHYSEMA, UNSPECIFIED Status: Chronic Priority: Medium Current Visit: Yes Qualifiers: Emphysema type: panlobular Qualified Code(s): J43.1 - Panlobular emphysema (6) Hypoxia SNOMED Code(s): 347626223 ICD Code: R09.02 - HYPOXEMIA Status: Acute Priority: High Current Visit : Yes (7) Iron deficiency anemia SNOMED Code(s): 51118517 ICD Code: D50.9 - IRON DEFICIENCY ANEMIA, UNSPECIFIED Status: Acute Priority: High Current Visit: Yes Qualifiers: Iron deficiency anemia type: unspecified iron deficiency Qualified Code(s) : D50.9 - Iron deficiency anemia, unspecified (8) Hypotension SNOMED Code(s): 00869556 ICD Code: I95.9 - HYPOTENSION, UNSPECIFIED Status: Acute Priority: High Current Visit: Yes Qualifiers: Hypotension type: unspecified hypotension type Qualified Code(s): I95.9 - Hypotension, unspecified (9) Tobacco use disorder SNOMED Code(s): 195401184 ICD Code: F17.200 - NICOTINE DEPENDENCE, UNSPECIFIED, UNCOMPLICATED Status : Chronic Priority: Medium Current Visit: Yes Problem List Initiated/Reviewed/Updated: Yes Orders Last 24hrs: Active Orders 24 hr Category Date Time Status Admission Status [Patient Status] [ADT] Routine ADT 08/24/18 00:52 Active Patient Status [ADT] Routine ADT 08/24/18 00:39 Active Oxygen Therapy Adult [Oxygen Therapy] [RC] ASDIRECTED Care 08/24/18 01:41 Active RT Aerosol Therapy [RC] ASDIRECTED Care 08/24/18 01:42 Active Up ad Shefali [RC] QSHIFT Care 08/24/18 01:36 Active Regular Diet [DIET] Diet 08/24/18 Breakfast Active Chest 2V [CR] Stat Exams 08/23/18 22:42 Taken CULTURE BLOOD [BC] Stat Lab 08/23/18 23:05 Received CULTURE BLOOD [BC] Stat Lab 08/23/18 23:05 Received CULTURE URINE [RM] Stat Lab 08/23/18 22:56 Received FE, TIBC, TRANSFERRIN, FE SAT [CHEM] Stat Lab 08/24/18 04:35 Received Albuterol/Ipratropium [DuoNeb 3.0-0.5 MG/3 ML] Med 08/24/18 03:00 Active 3 ml NEB Q6HRRT Dextrose 5%-0.9% NaCl with KCl [D5 NS with 20 mEq KCl] Med 08/24/18 01:45 Active 1,000 ml IV ASDIRECTED Ibuprofen [Motrin] Med 08/24/18 01:39 Active 600 mg PO Q6H PRN Lactated Ringers [Ringers, Lactated] 1,000 ml Med 08/24/18 11:45 Active IV ASDIRECTED Metoclopramide [Reglan] Med 08/24/18 01:40 Active 7.5 mg IVPUSH Q6H PRN Sodium Chloride 0.9% [Saline Flush] Med 08/23/18 22:54 Active 10 ml FLUSH ASDIRECTED PRN cefTRIAXone [Rocephin] 2 gm Med 08/24/18 02:00 Active Sodium Chloride 0.9% [Normal Saline] 100 ml IV Q24H Blood Culture x2 Reflex Set [OM.PC] Stat Ot 08/23/18 22:41 Ordered Peripheral IV Insertion Adult [OM.PC] Routine Oth 08/23/18 22:54 Ordered Code Status [Resuscitation Status] Routine Resus Stat 08/24/18 01:35 Ordered Medication Orders Albuterol/Ipratropium (Duoneb 3.0-0.5 Mg/3 Ml) 3 ml NEB Q6HRRT [facility] Last Admin: 08/24/18 03:03 Dose: 3 ml Ceftriaxone Sodium 2 gm/ (Sodium Chloride) 100 mls @ 200 mls/hr IV Q24H [facility] Last Admin: 08/24/18 02:18 Dose: 200 mls/hr Potassium Chloride/Dextrose/Sod Cl (D5 Ns With 20 Meq Kcl) 1,000 mls @ 100 mls/ hr IV ASDIRECTED [facility] Last Admin: 08/24/18 02:17 Dose: 100 mls/hr Lactated Ringer's (Ringers, Lactated) 1,000 mls @ 100 mls/hr IV ASDIRECTED [facility] Ibuprofen (Motrin) 600 mg PO Q6H PRN PRN Reason: Pain/Fever Last Admin: 08/24/18 05:01 Dose: 600 mg Metoclopramide HCl (Reglan) 7.5 mg IVPUSH Q6H PRN PRN Reason: Nausea/Vomiting Sodium Chloride (Saline Flush) 10 ml FLUSH ASDIRECTED PRN PRN Reason: Keep Vein Open Last Admin: 08/23/18 23:41 Dose: 10 ml Assessment/Plan Comment:: I/P: Acute: Pyelonephritis/UTI -Reports fever, rigors starting 1900 on 08/23/18 -Left CVA tenderness -WBC 13.39-->9.81 -CRP 0.7-->1.3 -Lactic acid 1.1-->1.3 -UA positive with trace protein, positive nitrite, 2+ leukocytosis esterase, 5-10 WBCs, many bacteria. -Rocephin 2gm started in ED - continue -Urine culture ordered -Blood culture pending -IV fluids as ordered -Tylenol for fever Hypoxia -CXR in ED shows nothing acute -Was on 2L -> weaned to 1L on floor -O2 as needed -Significant COPD history - was reportedly intubated in past; Daily smoker -RT/IS -Home COPD meds -Scheduled Albuterol nebulizers Iron deficiency -Noted to be microcytic in ED -Iron panel ordered in ED: Iron 17, TIBC 394, percent saturation 4, transferrin 315. -Start supplementation Hypotensive -BP low 80's systolic -Patient asymptomatic -IV fluid bolus given with good results -Lactic acid remains WNL Tobacco use disorder -Daily smoker -Nicotine patch ordered -Cessation counseling Chronic: COPD with prior intubation Trach due to overdose Chronic back pain Peripheral neuropathy Depression Plan: Admit to medical floor Routine AM labs Home medications as ordered Other orders as indicated above She does well with ambulation for now so hold off PT/OT VTE prophylaxis: LUCIE rivero Spiritual care consult Code status: Full code; PCP: JOSE
--- NOTE | 2018-08-24 07:07 | CR ---
Chest: Two views of the chest were obtained. Comparison: Prior chest x-ray of 04/23/12. Heart size and mediastinum are normal. Lungs are clear. Bony structures are unremarkable for the patient's age. Impression: 1. Nothing acute is seen on two-view chest x-ray. Diagnostic code #1
[2018-08-24] MEDS ORDERED: Bisacodyl 5 MG Tab PO PRN (09:23)
[2018-08-24] MEDS ORDERED: Docusate Sodium 100 MG Cap PO PRN (09:23)
[2018-08-24] MEDS ORDERED: Acetaminophen 325 MG Tab PO PRN (09:23)
[2018-08-24] MEDS ORDERED: Sodium Chloride 0.9% 1,000 ML IV ONE (09:25)
[2018-08-24] MEDS: Nicotine 14 MG/24 Hr Patch TRDERM SCH (10:51)
[2018-08-24] MEDS ORDERED: Lactated Ringers 1,000 ML IV SCH (11:45)
[2018-08-24] MEDS ORDERED: Gabapentin 600 MG Tab PO SCH (13:00)
[2018-08-24] MEDS: Gabapentin 600 MG Tab PO SCH ×3 (13:11→20:38)
[2018-08-24] MEDS: Citalopram 20 MG Tab PO SCH (13:11)
[2018-08-24] MEDS: ARIPiprazole 5 MG Tab PO SCH (13:11)
[2018-08-24] MEDS: Ferrous Sulfate 325 MG Tab PO SCH (16:01)
[2018-08-24] MEDS ORDERED: Montelukast 10 MG Tab PO SCH (21:00)
[2018-08-24] MEDS: Glycopyrrolate 15.6 MCG Cap.W.Dev Kit of 6 IH SCH (21:18)
[2018-08-24] MEDS: Formoterol/Mometasone 200-5 MCG 8.8 GM Inhaler IH SCH (21:18)
[2018-08-25] MEDS: cefTRIAXone 2 GM in Sodium Chloride 0.9% 100 ML IV SCH (02:25)
[2018-08-25] MEDS: Albuterol/Ipratropium 3.0-0.5 MG/3 ML Neb Soln NEB SCH ×3 (02:40→16:08)
[2018-08-25] MEDS: Ferrous Sulfate 325 MG Tab PO SCH (06:10)
[2018-08-25] MEDS: ARIPiprazole 5 MG Tab PO SCH (08:18)
[2018-08-25] MEDS: Citalopram 20 MG Tab PO SCH (08:19)
[2018-08-25] MEDS: Gabapentin 600 MG Tab PO SCH ×2 (08:20→13:31)
[2018-08-25] MEDS ORDERED: OLANZapine 5 MG Tab PO SCH (09:00)
[2018-08-25] MEDS ORDERED: Pantoprazole 40 MG Tab.CR PO SCH (09:00)
[2018-08-25] MEDS ORDERED: Famotidine 20 MG Tab PO SCH (09:00)
--- NOTE | 2018-08-25 09:15 | PCM.PN ---
- General Info Date of Service: 08/25/18 Admission Dx/Problem (Free Text): Admission Diagnosis/Problem Admission Diagnosis/Problem Pyelonephritis Subjective Update: In to see Patricia. She is just getting out of the shower. She reports she feels much better today and has no concerns. She would like to be discharged. Her C/S is back showing pansensitive E. Coli. Discussed case with Dr. Rolle and he is ok with discharge. Functional Status: Reports: Pain Controlled, Tolerating Diet, Ambulating, Urinating. Denies: New Symptoms - Review of Systems General: Reports: No Symptoms. Denies: Fever, Weakness, Fatigue, Malaise, Chills HEENT: Reports: No Symptoms. Denies: Headaches, Sore Throat Pulmonary: Reports: No Symptoms. Denies: Shortness of Breath, Cough, Sputum, Wheezing Cardiovascular: Reports: No Symptoms. Denies: Chest Pain, Palpitations, Dyspnea on Exertion Gastrointestinal: Reports: No Symptoms. Denies: Abdominal Pain, Constipation, Diarrhea, Nausea, Vomiting Genitourinary: Reports: No Symptoms. Denies: Pain Musculoskeletal: Reports: No Symptoms Skin: Reports: No Symptoms. Denies: Cyanosis Neurological: Reports: No Symptoms. Denies: Confusion Psychiatric: Reports: No Symptoms - Patient Data Vitals - Most Recent: Last Vital Signs Temp 97.9 F 08/25/18 04:24 Pulse 81 08/25/18 04:24 Resp 16 08/25/18 04:24 BP 92/62 08/25/18 04:24 Pulse Ox 99 08/25/18 04:24 Weight - Most Recent: 198 lb 3.2 oz I&O - Last 24 Hours: Intake & Output 08/24/18 08/25/18 08/25/18 22:59 06:59 14:59 Intake Total 2735 2265 Output Total 1700 1975 Balance 1035 290 Lab Results Last 24 Hours: Laboratory Results - last 24 hr 08/24/18 08/24/18 08/25/18 Range/Units 04:35 09:38 04:25 WBC 6.65 (3.98-10.04) K/mm3 RBC 4.54 (3.98-5.22) M/mm3 Hgb 9.3 L (11.2-15.7) gm/L Hct 31.4 L (34.1-44.9) % MCV 69.2 L (79.4-94.8) fl MCH 20.5 L (25.6-32.2) pg MCHC 29.6 L (32.2-35.5) g/dl RDW Std Deviation 45.4 (36.4-46.3) fL Plt Count 260 (182-369) K/mm3 MPV 11.7 (9.4-12.3) fl Neut % (Auto) 49.7 (34.0-71.1) % Lymph % (Auto) 34.4 (19.3-51.7) % [place] % (Auto) 11.0 (4.7-12.5) % Eos % (Auto) 4.2 (0.7-5.8) Baso % (Auto) 0.5 (0.1-1.2) % Neut # (Auto) 3.31 (1.56-6.13) K/mm3 Lymph # (Auto) 2.29 (1.18-3.74) K/mm3 [place] # (Auto) 0.73 H (0.24-0.36) K/mm3 Eos # (Auto) 0.28 (0.04-0.36) K/mm3 Baso # (Auto) 0.03 (0.01-0.08) K/mm3 Manual Slide Review Abnormal smear Sodium (136-145) mEq/L Potassium (3.5-5.1) mEq/L Chloride (98-107) mEq/L Carbon Dioxide (21-32) mEq/L Anion Gap (5-15) BUN (7-18) mg/dL Creatinine (0.55-1.02) mg/dL Est Cr Clr Drug Dosing mL/min Estimated GFR (MDRD) (>60) mL/min BUN/Creatinine Ratio (14-18) Glucose (74-106) mg/dL Lactic Acid 1.3 (0.4-2.0) mmol/L Calcium (8.5-10.1) mg/dL Magnesium (1.8-2.4) mg/dl C-Reactive Protein 1.3 H* (<1.0) mg/dL 08/25/18 Range/Units 04:25 WBC (3.98-10.04) K/mm3 RBC (3.98-5.22) M/mm3 Hgb (11.2-15.7) gm/L Hct (34.1-44.9) % MCV (79.4-94.8) fl MCH (25.6-32.2) pg MCHC (32.2-35.5) g/dl RDW Std Deviation (36.4-46.3) fL Plt Count (182-369) K/mm3 MPV (9.4-12.3) fl Neut % (Auto) (34.0-71.1) % Lymph % (Auto) (19.3-51.7) % [place] % (Auto) (4.7-12.5) % Eos % (Auto) (0.7-5.8) Baso % (Auto) (0.1-1.2) % Neut # (Auto) (1.56-6.13) K/mm3 Lymph # (Auto) (1.18-3.74) K/mm3 [place] # (Auto) (0.24-0.36) K/mm3 Eos # (Auto) (0.04-0.36) K/mm3 Baso # (Auto) (0.01-0.08) K/mm3 Manual Slide Review Sodium 144 (136-145) mEq/L Potassium 3.7 (3.5-5.1) mEq/L Chloride 110 H (98-107) mEq/L Carbon Dioxide 23 (21-32) mEq/L Anion Gap 14.7 (5-15) BUN 6 L (7-18) mg/dL Creatinine 0.8 (0.55-1.02) mg/dL Est Cr Clr Drug Dosing 64.95 mL/min Estimated GFR (MDRD) > 60 (>60) mL/min BUN/Creatinine Ratio 7.5 L (14-18) Glucose 108 H (74-106) mg/dL Lactic Acid (0.4-2.0) mmol/L Calcium 8.1 L (8.5-10.1) mg/dL Magnesium 1.9 (1.8-2.4) mg/dl C-Reactive Protein 1.7 H* (<1.0) mg/dL [place] Results Last 24 Hours: Microbiology 08/23/18 23:05 Aerobic Blood Culture - Preliminary Blood - Venous NO GROWTH AFTER 1 DAY Anaerobic Blood Culture - Preliminary NO GROWTH AFTER 1 DAY 08/23/18 23:05 Aerobic Blood Culture - Preliminary Blood - Venous - Lab Draw NO GROWTH AFTER 1 DAY Anaerobic Blood Culture - Preliminary NO GROWTH AFTER 1 DAY 08/23/18 22:56 Urine Culture - Preliminary Urine, Bladder Gram Negative Rods Med Orders - Current: Current Medications Acetaminophen (Tylenol) 650 mg PO Q4H PRN PRN Reason: Pain (Mild 1-3)/fever Last Admin: 08/24/18 14:25 Dose: 650 mg Albuterol/Ipratropium (Duoneb 3.0-0.5 Mg/3 Ml) 3 ml NEB Q6HRRT [facility] Last Admin: 08/25/18 02:40 Dose: 3 ml Aripiprazole (Abilify) 5 mg PO DAILY [facility] Last Admin: 08/25/18 08:18 Dose: 5 mg Bisacodyl (Dulcolax) 5 mg PO DAILY PRN PRN Reason: Constipation Citalopram Hydrobromide (Celexa) 40 mg PO DAILY [facility] Last Admin: 08/25/18 08:19 Dose: 40 mg Docusate Sodium (Colace) 100 mg PO BID PRN PRN Reason: Constipation Famotidine (Pepcid) 20 mg PO DAILY [facility] Last Admin: 08/25/18 08:20 Dose: 20 mg Ferrous Sulfate (Ferrous Sulfate) 325 mg PO BIDMEALS [facility] Last Admin: 08/25/18 06:10 Dose: 325 mg Gabapentin (Neurontin) 600 mg PO QID [facility] Last Admin: 08/25/18 08:20 Dose: 600 mg Glycopyrrolate (Seebri Neohaler) 15.6 mcg IH BID [facility] Last Admin: 08/24/18 21:18 Dose: 1 cap Ceftriaxone Sodium 2 gm/ (Sodium Chloride) 100 mls @ 200 mls/hr IV Q24H [facility] Last Admin: 08/25/18 02:25 Dose: 200 mls/hr Ibuprofen (Motrin) 600 mg PO Q6H PRN PRN Reason: Pain/Fever Last Admin: 08/24/18 18:43 Dose: 600 mg Metoclopramide HCl (Reglan) 7.5 mg IVPUSH Q6H PRN PRN Reason: Nausea/Vomiting Miscellaneous Information (Remove Patch) 0 ea TRDERM Q24H [facility] Mometasone Furoate/Formoterol Fumar (Dulera 200-5 Mcg) 2 puff IH BID [facility] Last Admin: 08/24/18 21:18 Dose: 2 puff Montelukast Sodium (Singulair) 10 mg PO BEDTIME [facility] Last Admin: 08/24/18 20:38 Dose: 10 mg Nicotine (Habitrol) 14 mg TRDERM Q24H [facility] Last Admin: 08/24/18 10:51 Dose: 14 mg Olanzapine (Zyprexa) 5 mg PO DAILY [facility] Last Admin: 08/25/18 08:20 Dose: 5 mg Pantoprazole Sodium (Protonix) 40 mg PO DAILY [facility] Last Admin: 08/25/18 08:20 Dose: 40 mg Senna/Docusate Sodium (Senna Plus) 1 tab PO BID PRN PRN Reason: Constipation Sodium Chloride (Saline Flush) 10 ml FLUSH ASDIRECTED PRN PRN Reason: Keep Vein Open Last Admin: 08/23/18 23:41 Dose: 10 ml Discontinued Medications Acetaminophen (Tylenol) 650 mg PO NOW ONE Stop: 08/23/18 22:44 Last Admin: 08/23/18 23:40 Dose: 650 mg Albuterol/Ipratropium (Duoneb 3.0-0.5 Mg/3 Ml) 3 ml NEB ONETIME ONE Stop: 08/23/18 22:56 Last Admin: 08/23/18 23:02 Dose: 3 ml Gabapentin (Neurontin) 6,090 mg PO QID [facility] Sodium Chloride (Normal Saline) 1,000 mls @ 150 mls/hr IV ASDIRECTED [facility] Last Admin: 08/23/18 23:41 Dose: 150 mls/hr Potassium Chloride/Dextrose/Sod Cl (D5 Ns With 20 Meq Kcl) 1,000 mls @ 100 mls/ hr IV ASDIRECTED [facility] Last Admin: 08/24/18 10:40 Dose: 100 mls/hr Lactated Ringer's (Ringers, Lactated) 1,000 mls @ 100 mls/hr IV ASDIRECTED [facility] Last Admin: 08/24/18 10:51 Dose: 100 mls/hr Sodium Chloride (Normal Saline) 1,000 mls @ 999 mls/hr IV ONETIME ONE Stop: 08/24/18 10:25 Last Admin: 08/24/18 09:38 Dose: 999 mls/hr - Exam Quality Assessment: DVT Prophylaxis General: Alert, Oriented, Cooperative, No Acute Distress HEENT: Pupils Equal, Pupils Reactive, EOMI, Mucous Membr. Moist/[place] Neck: Supple, Trachea Midline, No JVD Lungs: Clear to Auscultation, Normal Respiratory Effort, Decreased Breath Sounds Cardiovascular: Regular Rate, Regular Rhythm GI/Abdominal Exam: Normal Bowel Sounds, Soft, Non-Tender, No Distention, No Abnormal Bruit (Female) Exam: Deferred Back Exam: Normal Inspection, Full Range of Motion, CVA Tenderness (L) (Mild - improved ). No: CVA Tenderness (R) Extremities: Normal Inspection, Normal Range of Motion, Non-Tender, No Pedal Edema, Normal Capillary Refill Peripheral Pulses: 2+: Radial (L), Radial (R), Dorsalis Pedis (L), Dorsalis Pedis (R) Skin: Warm, Dry, Intact Neurological: No New Focal Deficit Psy/Mental Status: Alert, Normal Affect, Normal Mood - Problem List & Annotations (1) Pyelonephritis of left kidney SNOMED Code(s): 60961176 Code(s): N12 - TUBULO-INTERSTITIAL NEPHRITIS, NOT SPCF ACUTE OR CHRONIC Status: Acute Priority: High Current Visit: Yes (2) Chronic back pain SNOMED Code(s): 534324639 Code(s): M54.9 - DORSALGIA, UNSPECIFIED; G89.29 - OTHER CHRONIC PAIN Status : Chronic Priority: Medium Current Visit: No Qualifiers: Back pain location: back pain in unspecified location Back pain laterality : unspecified Qualified Code(s): M54.9 - Dorsalgia, unspecified; G89.29 - Other chronic pain (3) Peripheral neuropathy SNOMED Code(s): 796683165 Code(s): G62.9 - POLYNEUROPATHY, UNSPECIFIED Status: Chronic Priority: Medium Current Visit: No Qualifiers: Peripheral neuropathy type: polyneuropathy, unspecified Qualified Code(s): G62.9 - Polyneuropathy, unspecified (4) Acute febrile illness SNOMED Code(s): 573784084 Code(s): R50.9 - FEVER, UNSPECIFIED Status: Acute Priority: High Current Visit: Yes (5) COPD (chronic obstructive pulmonary disease) with emphysema SNOMED Code(s): 30748159 Code(s): J43.9 - EMPHYSEMA, UNSPECIFIED Status: Chronic Priority: Medium Current Visit: Yes Qualifiers: Emphysema type: panlobular Qualified Code(s): J43.1 - Panlobular emphysema (6) Hypoxia SNOMED Code(s): 843877127 Code(s): R09.02 - HYPOXEMIA Status: Acute Priority: High Current Visit : Yes (7) Iron deficiency anemia SNOMED Code(s): 64109003 Code(s): D50.9 - IRON DEFICIENCY ANEMIA, UNSPECIFIED Status: Acute Priority: High Current Visit: Yes Qualifiers: Iron deficiency anemia type: unspecified iron deficiency Qualified Code(s) : D50.9 - Iron deficiency anemia, unspecified (8) Hypotension SNOMED Code(s): 75673149 Code(s): I95.9 - HYPOTENSION, UNSPECIFIED Status: Acute Priority: High Current Visit: Yes Qualifiers: Hypotension type: unspecified hypotension type Qualified Code(s): I95.9 - Hypotension, unspecified (9) Tobacco use disorder SNOMED Code(s): 970607788 Code(s): F17.200 - NICOTINE DEPENDENCE, UNSPECIFIED, UNCOMPLICATED Status: Chronic Priority: Medium Current Visit: Yes - Problem List Review Problem List Initiated/Reviewed/Updated: Yes - My Orders Last 24 Hours: My Active Orders 08/24/18 09:23 VTE/DVT Education [RC] PER UNIT ROUTINE Vital Signs [RC] Q4H Consult to Spiritual Care [CONS] Routine Respiratory Care Assess and Treatment [CONS] Routine Acetaminophen [Tylenol] 650 mg PO Q4H PRN Bisacodyl [Dulcolax] 5 mg PO DAILY PRN Docusate Sodium [Colace] 100 mg PO BID PRN Docusate Sodium/Sennosides [Senna Plus] 1 tab PO BID PRN 08/24/18 10:00 Nicotine [Habitrol] 14 mg TRDERM Q24H 08/24/18 10:30 Antiembolic Devices [RC] PER UNIT ROUTINE LUCIE Hose [Antiembolic Hose] [OM.PC] Routine 08/24/18 13:00 ARIPiprazole [Abilify] 5 mg PO DAILY Citalopram [Celexa] 40 mg PO DAILY Gabapentin [Neurontin] 600 mg PO QID 08/24/18 13:43 RT Incentive Spirometry [RC] ASDIRECTED 08/24/18 14:17 Consult to Occupational Therapy [OT Evaluation and Treatment] [CONS] Routine PT Evaluation and Treatment [CONS] Routine 08/24/18 17:00 Ferrous Sulfate 325 mg PO BIDMEALS 08/24/18 21:00 Glycopyrrolate [Seebri Neohaler] 15.6 mcg IH BID Mometasone/Formoterol [Dulera 200-5 MCG] 2 puff IH BID Montelukast [Singulair] 10 mg PO BEDTIME 08/25/18 09:00 Famotidine [Pepcid] 20 mg PO DAILY OLANZapine [ZyPREXA] 5 mg PO DAILY Pantoprazole [ProTONIX] 40 mg PO DAILY 08/25/18 10:00 Remove Patch 0 ea TRDERM Q24H 08/26/18 05:11 BASIC METABOLIC PANEL,BMP [CHEM] AM CBC WITH AUTO DIFF [HEME] AM CRP [C-REACTIVE PROTEIN] [CHEM] AM MAGNESIUM [CHEM] AM 08/27/18 05:11 BASIC METABOLIC PANEL,BMP [CHEM] AM CBC WITH AUTO DIFF [HEME] AM CRP [C-REACTIVE PROTEIN] [CHEM] AM MAGNESIUM [CHEM] AM 08/28/18 05:11 BASIC METABOLIC PANEL,BMP [CHEM] AM CBC WITH AUTO DIFF [HEME] AM CRP [C-REACTIVE PROTEIN] [CHEM] AM MAGNESIUM [CHEM] AM - Plan Plan:: I/P: Acute: Pyelonephritis/UTI -Reports fever, rigors starting 1900 on 08/23/18 -Left CVA tenderness -WBC 13.39-->9.81-->6.65 -CRP 0.7-->1.3-->1.7 -Lactic acid 1.1-->1.3 -UA positive with trace protein, positive nitrite, 2+ leukocytosis esterase, 5-10 WBCs, many bacteria. -Rocephin 2gm started in ED - continue -Urine culture ordered -Blood culture pending -IV fluids as ordered -Tylenol for fever S/P Hypoxia -CXR in ED shows nothing acute -Was on 2L -> weaned to 1L on floor -> further weaned off -O2 as needed -Significant COPD history - was reportedly intubated in past; Daily smoker -RT/IS -Home COPD meds -Scheduled Albuterol nebulizers Iron deficiency -Noted to be microcytic in ED -Iron panel ordered in ED: Iron 17, TIBC 394, percent saturation 4, transferrin 315. -Start supplementation Hypotensive -BP low 80's systolic -Patient asymptomatic -IV fluid bolus given with good results -Lactic acid remains WNL Tobacco use disorder -Daily smoker -Nicotine patch ordered -Cessation counseling Chronic: COPD with prior intubation Trach due to overdose Chronic back pain Peripheral neuropathy Depression Plan: Admit to medical floor Routine AM labs Home medications as ordered Other orders as indicated above She does well with ambulation for now so hold off PT/OT VTE prophylaxis: LUCIE rivero Spiritual care consult Code status: Full code; PCP: JOSE
[2018-08-25] MEDS: Formoterol/Mometasone 200-5 MCG 8.8 GM Inhaler IH SCH (09:19)
[2018-08-25] MEDS: Glycopyrrolate 15.6 MCG Cap.W.Dev Kit of 6 IH SCH (09:19)
[2018-08-25] MEDS: Nicotine 14 MG/24 Hr Patch TRDERM SCH (11:52)
[2018-08-25 12:04] VITALS: BP 105/57
--- NOTE | 2018-08-25 13:58 | PCM.DCSUM1 ---
Discharge Summary - Hospital Course HPI Initial Comments: Patricia Smith is a 58 yo female who presented to our ED in the overnight hours with concerns over possible seizure. She reports that around 1900 she developed full body shaking. She says she was in bed when this started and she was alone. She reports she got up and walked around and went back to bed and the whole episode lasted about a half hour. She reports she now feels tired. She did not lose bowel or bladder control and does not have a history of seizures. She reports she has a history of COPD and has a had a cold for one or 2 months. She also reports low-grade fevers at home. In the ED temp was 37.1 Celsius. Pulse 86. Respirations 26. Blood pressure 100/71. Pulse ox 93%. Labs were obtained showing a WBC of 13.39. Hemoglobin 11.6. Hematocrit 38. She is microcytic. Neutrophils are elevated at 76%. There is 1% band neutrophils noted. UA was positive with cloudy urine, trace protein, positive nitrite, 2+ leukocyte esterase, 5-10 WBCs, and many bacteria. UDS was obtained and was positive for benzodiazepines. Sodium was 137. Potassium 3.9. Chloride 102. Carbon dioxide 25. Anion gap is 13.9. BUN is 12. Creatinine 1.0. GFR was 57. Glucose was 118. Lactic acid 1.1. Calcium 8.9. Magnesium 2.0. Bilirubin 0.8. AST was 30, ALT 29, alkaline phosphatase 218. CRP was 0.7. ProBNP was 54. Protein was 7.8. Albumin 3.6. As noted in the ED note she likely did not have a seizure and it is more probable that she was having rigors from infection. Chest x-ray is obtained and shows nothing acute. She is noted to have tenderness in her left costovertebral angle suggesting left-sided pyelonephritis. She started on Rocephin 2 g IV. She is noted to have saturations of 90-92% was started on 2 L of oxygen she is known to have significant COPD and is a daily smoker. She carries a history of COPD with prior intubation, prior trach due to overdose , chronic back pain, peripheral neuropathy, depression. Her PCP is [facility]. She is a full code. She subsequently admitted to the medical floor for management of her UTI/pyelonephritis. Diagnosis: Stroke: No - Discharge Data Discharge Date: 08/25/18 (Admit date: 08/25/18) Discharge Disposition: Home, Self-Care 01 Condition: Good - Discharge Diagnosis/Problem(s) (1) Pyelonephritis of left kidney SNOMED Code(s): 87970907 ICD Code: N12 - TUBULO-INTERSTITIAL NEPHRITIS, NOT SPCF ACUTE OR CHRONIC Status: Acute Priority: High Current Visit: Yes (2) Chronic back pain SNOMED Code(s): 868070914 ICD Code: M54.9 - DORSALGIA, UNSPECIFIED; G89.29 - OTHER CHRONIC PAIN Status: Chronic Priority: Medium Current Visit: No Qualifiers: Back pain location: back pain in unspecified location Back pain laterality : unspecified Qualified Code(s): M54.9 - Dorsalgia, unspecified; G89.29 - Other chronic pain (3) Peripheral neuropathy SNOMED Code(s): 817170964 ICD Code: G62.9 - POLYNEUROPATHY, UNSPECIFIED Status: Chronic Priority: Medium Current Visit: No Qualifiers: Peripheral neuropathy type: polyneuropathy, unspecified Qualified Code(s): G62.9 - Polyneuropathy, unspecified (4) Acute febrile illness SNOMED Code(s): 444946985 ICD Code: R50.9 - FEVER, UNSPECIFIED Status: Acute Priority: High Current Visit: Yes (5) COPD (chronic obstructive pulmonary disease) with emphysema SNOMED Code(s): 64937303 ICD Code: J43.9 - EMPHYSEMA, UNSPECIFIED Status: Chronic Priority: Medium Current Visit: Yes Qualifiers: Emphysema type: panlobular Qualified Code(s): J43.1 - Panlobular emphysema (6) Hypoxia SNOMED Code(s): 245002492 ICD Code: R09.02 - HYPOXEMIA Status: Acute Priority: High Current Visit : Yes (7) Iron deficiency anemia SNOMED Code(s): 24659485 ICD Code: D50.9 - IRON DEFICIENCY ANEMIA, UNSPECIFIED Status: Acute Priority: High Current Visit: Yes Qualifiers: Iron deficiency anemia type: unspecified iron deficiency Qualified Code(s) : D50.9 - Iron deficiency anemia, unspecified (8) Hypotension SNOMED Code(s): 31677803 ICD Code: I95.9 - HYPOTENSION, UNSPECIFIED Status: Acute Priority: High Current Visit: Yes Qualifiers: Hypotension type: unspecified hypotension type Qualified Code(s): I95.9 - Hypotension, unspecified (9) Tobacco use disorder SNOMED Code(s): 132159903 ICD Code: F17.200 - NICOTINE DEPENDENCE, UNSPECIFIED, UNCOMPLICATED Status : Chronic Priority: Medium Current Visit: Yes - Patient Summary/Data Consults: Consultations 08/24/18 09:23 Consult to Spiritual Care [CONS] Routine Respiratory Care Assess and Treatment [CONS] Routine 08/24/18 14:17 Consult to Occupational Therapy [OT Evaluation and Treatment] [CONS] Routine PT Evaluation and Treatment [CONS] Routine Labs Pending at D/C: None Recommended Follow-up Testing/Procedures: Follow-up with PCP within 7-10 days of discharge. Strongly recommend PCP review patients home medication list. Hospital Course: I/P: Acute: Pyelonephritis/UTI -Reports fever, rigors starting 1900 on 08/23/18 -Left CVA tenderness -WBC 13.39-->9.81-->6.65 -CRP 0.7-->1.3-->1.7 -Lactic acid 1.1-->1.3 -UA positive with trace protein, positive nitrite, 2+ leukocytosis esterase, 5-10 WBCs, many bacteria. -Rocephin 2gm started in ED - continue -Urine culture ordered -Blood culture pending -IV fluids as ordered -Tylenol for fever Iron deficiency -Noted to be microcytic in ED -Iron panel ordered in ED: Iron 17, TIBC 394, percent saturation 4, transferrin 315. -Start supplementation Tobacco use disorder -Daily smoker -Nicotine patch ordered -Cessation counseling Resolved: S/P Hypotensive -BP low 80's systolic -Patient asymptomatic -IV fluid bolus given with good results -Lactic acid remains WNL S/P Hypoxia -CXR in ED shows nothing acute -Was on 2L -> weaned to 1L on floor -> further weaned off -O2 as needed -Significant COPD history - was reportedly intubated in past; Daily smoker -RT/IS -Home COPD meds -Scheduled Albuterol nebulizers Chronic: COPD with prior intubation Trach due to overdose Chronic back pain Peripheral neuropathy Depression Plan: Admit to medical floor Routine AM labs Home medications as ordered Other orders as indicated above She does well with ambulation for now so hold off PT/OT VTE prophylaxis: LUCIE [facility] care consult Code status: Full code; PCP: JO[facility] Overall from a hospitalist standpoint Patricia did very well. She was admitted to the floor for pyelonephritis. She was started on Rocephin and responded well. Her WBC rapidly decreased and her CVA tenderness improved significantly. She was noted to be low on iron and started on BID iron. Blood cultures were negative. Urine cultures returned E. Coli vargas sensitive. She was requiring oxygen on admission and has a significant COPD history. She was able to be weaned off of this rapidly. She is a daily smoker and was given nicotine patches on discharge. She was noted to be somewhat hypotension on admission and was given a fluid bolus with good response. Lactic acid remained WNL> She will be prescribed PO BID ceftin for 5 days. She will also be prescribed BID iron supplementation and nicotine patches as mentioned. We discussed follow-up for smoking cessation with her PCP. She will be discharged today. She was instructed to follow-up with her PCP within 7-10 days of discharge, sooner if needed. We strongly recommend she review her home medication list with her PCP as she is on very high doses of gabapentin. - Patient Instructions Diet: Usual Diet as Tolerated Activity: As Tolerated Showering/Bathing: May Shower Notify Provider of: Fever, Increased Pain, Nausea and/or Vomiting Other/Special Instructions: Follow-up with your primary care provider within 7- 10 days of discharge, sooner if needed. Take all medicatoins as prescribed. Continue to drink plenty of fluids. We strongly recommend you and your primary care provider review your home medication list. We discussed smoking cessation. You were provided a list of numbers and contact information for local programs. Nicotine patches were sent to your pharmacy. You shoud follow- up with your primary care provider regarding this as they will be a good resource for you. Should symptoms return or worsen contact your primary care provider or return the the Emergency Department. - Discharge Plan *PRESCRIPTION DRUG MONITORING PROGRAM REVIEWED*: No *COPY OF PRESCRIPTION DRUG MONITORING REPORT IN PATIENT LORAINE: No Prescriptions/Med Rec: Cefuroxime [Ceftin] 250 mg PO BID #10 tab Ferrous Sulfate 325 mg PO BIDMEALS #20 tablet Nicotine [Habitrol] 14 mg TRDERM Q24H #20 patch Home Medications: Home Meds Albuterol [Proventil HFA] 2 puff INH Q4HR 08/23/18 [History] Budesonide/Formoterol [Symbicort 160-4.5 MCG] 2 puff INH BID 08/23/18 [History] Citalopram Hydrobromide [Celexa] 40 mg PO DAILY 08/23/18 [History] Oxybutynin 5 mg PO BID 08/23/18 [History] ARIPiprazole [Abilify] 5 mg PO DAILY 08/24/18 [History] Cetirizine [ZyrTEC] 10 mg PO DAILY 08/24/18 [History] Eletriptan HBr 40 mg PO ASDIRECTED PRN 08/24/18 [History] Esomeprazole Magnesium 40 mg PO DAILY 08/24/18 [History] Gabapentin [Neurontin] 600 mg PO Q3HR 08/24/18 [History] Montelukast [Singulair] 10 mg PO BEDTIME 08/24/18 [History] OLANZapine [Olanzapine] 5 mg PO DAILY 08/24/18 [History] Pantoprazole [ProTONIX] 40 mg PO DAILY 08/24/18 [History] Tiotropium [Spiriva HandiHaler] 1 cap INH DAILY 08/24/18 [History] Cefuroxime [Ceftin] 250 mg PO BID #10 tab 08/25/18 [Rx] Ferrous Sulfate 325 mg PO BIDMEALS #20 tablet 08/25/18 [Rx] Nicotine [Habitrol] 14 mg TRDERM Q24H #20 patch 08/25/18 [Rx] Oxygen Therapy Mode: Room Air Patient Handouts: Pyelonephritis, Adult, [id number], Steps to Quit Smoking Forms: ED Department Discharge Referrals: PCP,Not In Area [Primary Care Provider] - 09/07/18 1:00 pm (please attend the scheduled follow up appointment with Dr. Thomas as listed at [facility]) - Discharge Summary/Plan Comment DC Time >30 min.: Yes (40 minutes) - General Info Date of Service: 08/25/18 Admission Dx/Problem (Free Text: Admission Diagnosis/Problem Admission Diagnosis/Problem Pyelonephritis Subjective Update: In to see Patricia. She is just getting out of the shower. She reports she feels much better today and has no concerns. She would like to be discharged. Her C/S is back showing pansensitive E. Coli. Discussed case with Dr. Rolle and he is ok with discharge. Functional Status: Reports: Pain Controlled, Tolerating Diet, Ambulating, Urinating. Denies: New Symptoms - Review of Systems General: Reports: No Symptoms. Denies: Fever, Weakness, Fatigue, Malaise, Chills HEENT: Reports: No Symptoms. Denies: Headaches, Sore Throat Pulmonary: Reports: No Symptoms. Denies: Shortness of Breath, Pleuritic Chest Pain, Cough, Sputum, Wheezing Cardiovascular: Reports: No Symptoms. Denies: Chest Pain, Palpitations Gastrointestinal: Reports: No Symptoms. Denies: Abdominal Pain, Constipation, Diarrhea, Nausea, Vomiting Genitourinary: Reports: No Symptoms. Denies: Pain Musculoskeletal: Reports: Back Pain (chronic ) Skin: Reports: No Symptoms. Denies: Cyanosis Neurological: Reports: No Symptoms. Denies: Confusion Psychiatric: Reports: No Symptoms - Patient Data Vitals - Most Recent: Last Vital Signs Temp 98.2 F 08/25/18 12:03 Pulse 88 08/25/18 12:03 Resp 16 08/25/18 12:03 BP 105/57 L 08/25/18 12:03 Pulse Ox 98 08/25/18 12:03 Weight - Most Recent: 198 lb 3.2 oz I&O - Last 24 hours: Intake & Output 08/24/18 08/25/18 08/25/18 22:59 06:59 14:59 Intake Total 2735 2265 120 Output Total 1700 1975 Balance 1035 290 120 Lab Results - Last 24 hrs: Laboratory Results - last 24 hr 08/25/18 08/25/18 Range/Units 04:25 04:25 WBC 6.65 (3.98-10.04) K/mm3 RBC 4.54 (3.98-5.22) M/mm3 Hgb 9.3 L (11.2-15.7) gm/L Hct 31.4 L (34.1-44.9) % MCV 69.2 L (79.4-94.8) fl MCH 20.5 L (25.6-32.2) pg MCHC 29.6 L (32.2-35.5) g/dl RDW Std Deviation 45.4 (36.4-46.3) fL Plt Count 260 (182-369) K/mm3 MPV 11.7 (9.4-12.3) fl Neut % (Auto) 49.7 (34.0-71.1) % Lymph % (Auto) 34.4 (19.3-51.7) % [place] % (Auto) 11.0 (4.7-12.5) % Eos % (Auto) 4.2 (0.7-5.8) Baso % (Auto) 0.5 (0.1-1.2) % Neut # (Auto) 3.31 (1.56-6.13) K/mm3 Lymph # (Auto) 2.29 (1.18-3.74) K/mm3 [place] # (Auto) 0.73 H (0.24-0.36) K/mm3 Eos # (Auto) 0.28 (0.04-0.36) K/mm3 Baso # (Auto) 0.03 (0.01-0.08) K/mm3 Manual Slide Review Abnormal smear Sodium 144 (136-145) mEq/L Potassium 3.7 (3.5-5.1) mEq/L Chloride 110 H (98-107) mEq/L Carbon Dioxide 23 (21-32) mEq/L Anion Gap 14.7 (5-15) BUN 6 L (7-18) mg/dL Creatinine 0.8 (0.55-1.02) mg/dL Est Cr Clr Drug Dosing 64.95 mL/min Estimated GFR (MDRD) > 60 (>60) mL/min BUN/Creatinine Ratio 7.5 L (14-18) Glucose 108 H (74-106) mg/dL Calcium 8.1 L (8.5-10.1) mg/dL Magnesium 1.9 (1.8-2.4) mg/dl C-Reactive Protein 1.7 H* (<1.0) mg/dL VICKY Results - Last 24 hrs: Microbiology 08/23/18 22:56 Urine Culture - Final Urine, Bladder Escherichia Coli 08/23/18 23:05 Aerobic Blood Culture - Preliminary Blood - Venous NO GROWTH AFTER 1 DAY Anaerobic Blood Culture - Preliminary NO GROWTH AFTER 1 DAY 08/23/18 23:05 Aerobic Blood Culture - Preliminary Blood - Venous - Lab Draw NO GROWTH AFTER 1 DAY Anaerobic Blood Culture - Preliminary NO GROWTH AFTER 1 DAY Med Orders - Current: Current Medications Acetaminophen (Tylenol) 650 mg PO Q4H PRN PRN Reason: Pain (Mild 1-3)/fever Last Admin: 08/24/18 14:25 Dose: 650 mg Albuterol/Ipratropium (Duoneb 3.0-0.5 Mg/3 Ml) 3 ml NEB Q6HRRT [facility] Last Admin: 08/25/18 09:19 Dose: 3 ml Aripiprazole (Abilify) 5 mg PO DAILY [facility] Last Admin: 08/25/18 08:18 Dose: 5 mg Bisacodyl (Dulcolax) 5 mg PO DAILY PRN PRN Reason: Constipation Citalopram Hydrobromide (Celexa) 40 mg PO DAILY [facility] Last Admin: 08/25/18 08:19 Dose: 40 mg Docusate Sodium (Colace) 100 mg PO BID PRN PRN Reason: Constipation Ferrous Sulfate (Ferrous Sulfate) 325 mg PO BIDMEALS [facility] Last Admin: 08/25/18 06:10 Dose: 325 mg Gabapentin (Neurontin) 600 mg PO QID [facility] Last Admin: 08/25/18 13:31 Dose: 600 mg Glycopyrrolate (Seebri Neohaler) 15.6 mcg IH BID [facility] Last Admin: 08/25/18 09:19 Dose: 1 cap Ceftriaxone Sodium 2 gm/ (Sodium Chloride) 100 mls @ 200 mls/hr IV Q24H [facility] Last Admin: 08/25/18 02:25 Dose: 200 mls/hr Ibuprofen (Motrin) 600 mg PO Q6H PRN PRN Reason: Pain/Fever Last Admin: 08/24/18 18:43 Dose: 600 mg Metoclopramide HCl (Reglan) 7.5 mg IVPUSH Q6H PRN PRN Reason: Nausea/Vomiting Miscellaneous Information (Remove Patch) 0 ea TRDERM Q24H [facility] Last Admin: 08/25/18 11:51 Dose: 1 ea Mometasone Furoate/Formoterol Fumar (Dulera 200-5 Mcg) 2 puff IH BID [facility] Last Admin: 08/25/18 09:19 Dose: 2 puff Montelukast Sodium (Singulair) 10 mg PO BEDTIME [facility] Last Admin: 08/24/18 20:38 Dose: 10 mg Nicotine (Habitrol) 14 mg TRDERM Q24H [facility] Last Admin: 08/25/18 11:52 Dose: 14 mg Olanzapine (Zyprexa) 5 mg PO DAILY [facility] Last Admin: 08/25/18 08:20 Dose: 5 mg Pantoprazole Sodium (Protonix) 40 mg PO DAILY [facility] Last Admin: 08/25/18 08:20 Dose: 40 mg Senna/Docusate Sodium (Senna Plus) 1 tab PO BID PRN PRN Reason: Constipation Sodium Chloride (Saline Flush) 10 ml FLUSH ASDIRECTED PRN PRN Reason: Keep Vein Open Last Admin: 08/23/18 23:41 Dose: 10 ml Discontinued Medications Acetaminophen (Tylenol) 650 mg PO NOW ONE Stop: 08/23/18 22:44 Last Admin: 08/23/18 23:40 Dose: 650 mg Albuterol/Ipratropium (Duoneb 3.0-0.5 Mg/3 Ml) 3 ml NEB ONETIME ONE Stop: 08/23/18 22:56 Last Admin: 08/23/18 23:02 Dose: 3 ml Famotidine (Pepcid) 20 mg PO DAILY [facility] Last Admin: 08/25/18 08:20 Dose: 20 mg Gabapentin (Neurontin) 6,090 mg PO QID [facility] Sodium Chloride (Normal Saline) 1,000 mls @ 150 mls/hr IV ASDIRECTED [facility] Last Admin: 08/23/18 23:41 Dose: 150 mls/hr Potassium Chloride/Dextrose/Sod Cl (D5 Ns With 20 Meq Kcl) 1,000 mls @ 100 mls/ hr IV ASDIRECTED [facility] Last Admin: 08/24/18 10:40 Dose: 100 mls/hr Lactated Ringer's (Ringers, Lactated) 1,000 mls @ 100 mls/hr IV ASDIRECTED [facility] Last Admin: 08/24/18 10:51 Dose: 100 mls/hr Sodium Chloride (Normal Saline) 1,000 mls @ 999 mls/hr IV ONETIME ONE Stop: 08/24/18 10:25 Last Admin: 08/24/18 09:38 Dose: 999 mls/hr - Exam Quality Assessment: Reports: DVT Prophylaxis General: Reports: Alert, Oriented, Cooperative, No Acute Distress HEENT: Reports: Pupils Equal, Pupils Reactive, EOMI, Mucous Membr. Moist/Hermann Neck: Reports: Supple, Trachea Midline, No JVD Lungs: Reports: Clear to Auscultation, Normal Respiratory Effort, Decreased Breath Sounds Cardiovascular: Reports: Regular Rate, Regular Rhythm GI/Abdominal Exam: Normal Bowel Sounds, Soft, Non-Tender, No Distention, No Abnormal Bruit (Female) Exam: Deferred Rectal (Female) Exam: Deferred Back Exam: Reports: Normal Inspection, Full Range of Motion, CVA Tenderness (L) (mild - improved ). Denies: CVA Tenderness (R) Extremities: Normal Inspection, Normal Range of Motion, Non-Tender, No Pedal Edema, Normal Capillary Refill Skin: Reports: Warm, Dry, Intact Neurological: Reports: No New Focal Deficit Psy/Mental Status: Reports: Alert
== END 2018-08-25 15:30 | disposition home or self-care (01) | DRG 690 ==
LOC: JD.ED 22:10 → JD.MS 08-24 00:45
PROVIDERS: ADMIT Family Medicine; ATTEND Family Medicine
DX: N12 Tubulo-interstitial nephritis, not specified as acute or chronic (principal); R53.83 Other fatigue; R50.9 Fever, unspecified; R51 Headache; Z88.6 Allergy status to analgesic agent; H54.7 Unspecified visual loss; E66.9 Obesity, unspecified; M54.9 Dorsalgia, unspecified; G89.29 Other chronic pain; G62.9 Polyneuropathy, unspecified; I95.9 Hypotension, unspecified; F32.9 Major depressive disorder, single episode, unspecified; F17.210 Nicotine dependence, cigarettes, uncomplicated; R09.02 Hypoxemia; D50.9 Iron deficiency anemia, unspecified; J43.1 Panlobular emphysema; Z68.35 Body mass index [BMI] 35.0-35.9, adult; Z88.5 Allergy status to narcotic agent; Z79.899 Other long term (current) drug therapy
CPT/HCPCS: 36415; 71046; 80053; 80306; 81001; 83605; 83735; 83880; 85007; 85027; 86140; 87040 ×2; 87086; 87088; 87186; 94640; 96360; 99284; A9270; J7040; 80048; 83540; 84466; 85025; 94760; 94761; 97116-GP; 97161-GP; 97165-GO; 99283; J0696; J3480; J7030; J7120; J7620-GY

== ENCOUNTER 2019-01-23 18:29 | Emergency (ER) | payer OTHER, MEDICAID ==
[2019-01-23 18:48] VITALS: BP 110/72; PULSE 85
[2019-01-23] MEDS ORDERED: Ketorolac 30 MG/ML SDV IM ONE (18:49)
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
[2019-01-23] MEDS ORDERED: FLU Vacc QS2019-20(6MOS+)/PF 60 MCG/0.5 ML SYRINGE IM ONE (19:00)
--- NOTE | 2019-01-23 20:38 | CT ---
Head CT Technique: Multiple axial sections through the brain were obtained. Intravenous contrast was not utilized. Comparison: Prior head CT study of 0 to. Findings: Ventricles along with basal cisterns and sulci over convexities appear within normal limits for the patient's age. No abnormal parenchymal densities are seen. No evidence of intracranial hemorrhage. No midline shift or mass effect is seen. Bone window settings were reviewed. Visualized paranasal sinuses show nothing acute. Visualized mastoid sinuses are clear. No acute calvarial abnormality is identified. Impression: 1. Nothing acute is appreciated on noncontrast head CT exam. Diagnostic code #1
--- NOTE | 2019-01-23 20:42 | CR ---
Cervical spine: AP, lateral and odontoid views of the cervical spine were obtained. Comparison: No prior cervical spine imaging. Vertebral body heights are maintained. Disc spaces are fairly well-preserved. Incidental ligamentum nuchal calcification is seen. Prevertebral soft tissues are normal. Minimal scoliosis is noted. No discrete fracture or other bony abnormality is seen. Impression: 1. Minimal scoliosis. Incidental ligamentum nuchal calcification. 2. Nothing acute is appreciated on 3 view cervical spine exam. Diagnostic code #2
--- NOTE | 2019-01-23 20:42 | CR ---
Lumbar spine: AP and lateral views of the lumbar spine were obtained. Comparison: No prior lumbar spine imaging. Vertebral body heights and disc spaces are maintained. Pedicles are intact. Visualized transverse and spinous processes are intact. Minimal scoliosis is noted. Sacroiliac joints appear within normal limits. No discrete fracture or subluxation is seen. Impression: 1. Slight scoliosis. Nothing acute is appreciated on 2 view lumbar spine exam. Note: If patient remains symptomatic, MRI could then be considered. Diagnostic code #1
== END 2019-01-23 21:11 | disposition home or self-care (01) ==
LOC: JD.ED 18:29
DX: S16.1XXA Strain of muscle, fascia and tendon at neck level, initial encounter (principal); S39.012A Strain of muscle, fascia and tendon of lower back, initial encounter; S00.83XA Contusion of other part of head, initial encounter; J44.9 Chronic obstructive pulmonary disease, unspecified; E66.9 Obesity, unspecified; F32.9 Major depressive disorder, single episode, unspecified; Z68.30 Body mass index [BMI] 30.0-30.9, adult; Z88.5 Allergy status to narcotic agent; Z79.899 Other long term (current) drug therapy; Z23 Encounter for immunization; V69.9XXA Occupant (driver) (passenger) of heavy transport vehicle injured in unspecified traffic accident, initial encounter
CPT/HCPCS: 70450; 72040; 72100; 90471; 90686; 96372; 99284; J1885; 99283

== ENCOUNTER 2019-06-02 06:26 | Emergency (ER) | payer MEDICAID, OTHER, SELFPAY ==
[2019-06-02] MEDS ORDERED: Sodium Chloride 0.9% 10 ML Syringe FLUSH PRN (07:11)
[2019-06-02] MEDS ORDERED: Albuterol/Ipratropium 3.0-0.5 MG/3 ML Neb Soln NEB ONE (07:12)
[2019-06-02] MEDS ORDERED: methylPREDNISolone Sodium Succinate 125 MG/2 ML SDV IVPUSH ONE (07:13)
--- NOTE | 2019-06-02 08:04 | EDM.PDOC ---
ED HPI GENERAL MEDICAL PROBLEM - General Chief Complaint: Respiratory Problem Stated Complaint: SOB/SHAKING Time Seen by Provider: 06/02/19 06:58 Source of Information: Reports: Patient History Limitations: Reports: No Limitations - History of Present Illness INITIAL COMMENTS - FREE TEXT/NARRATIVE: The patient presents with shortness of breath. She said this has been going on through the night. She also has been shaking. She has a history of COPD. She did use her inhalers. She also did have some mild chest tightness. She denies fever, chills or cough. She has no abdominal pain, nausea or vomiting. She has no dysuria. Onset: Gradual Duration: Hour(s): Location: Reports: Chest Quality: Reports: Other (tightness) Severity: Mild Improves with: Reports: None Worsens with: Reports: None Associated Symptoms: Reports: Chest Pain, Shortness of Breath. Denies: Cough, Fever/Chills, Headaches, Nausea/Vomiting Treatments SERVICE ASSISTANT: Reports: Other (see below) Other Treatments SERVICE ASSISTANT: gabapentin 600mg @ 0300 - Related Data Allergies Allergy/AdvReac Type Severity Reaction Status Date / Time codeine Allergy Rash Verified 06/02/19 06:41 Home Meds: Home Meds Albuterol [Proventil HFA] 2 puff INH Q4HR 08/23/18 [History] Budesonide/Formoterol [Symbicort 160-4.5 MCG] 2 puff INH BID 08/23/18 [History] Citalopram Hydrobromide [Celexa] 40 mg PO DAILY 08/23/18 [History] Oxybutynin 5 mg PO BID 08/23/18 [History] ARIPiprazole [Abilify] 5 mg PO DAILY 08/24/18 [History] Cetirizine [ZyrTEC] 10 mg PO DAILY 08/24/18 [History] Eletriptan HBr 40 mg PO ASDIRECTED PRN 08/24/18 [History] Esomeprazole Magnesium 40 mg PO DAILY 08/24/18 [History] Gabapentin [Neurontin] 600 mg PO Q3HR 08/24/18 [History] Montelukast [Singulair] 10 mg PO BEDTIME 08/24/18 [History] OLANZapine [Olanzapine] 5 mg PO DAILY 08/24/18 [History] Pantoprazole [ProTONIX] 40 mg PO DAILY 08/24/18 [History] Tiotropium [Spiriva HandiHaler] 1 cap INH DAILY 08/24/18 [History] Cefuroxime [Ceftin] 250 mg PO BID #10 tab 08/25/18 [Rx] Ferrous Sulfate 325 mg PO BIDMEALS #20 tablet 08/25/18 [Rx] Nicotine [Habitrol] 14 mg TRDERM Q24H #20 patch 08/25/18 [Rx] Ketorolac [Toradol] 10 mg PO TID PRN #15 tab 01/23/19 [Rx] predniSONE [Prednisone] 40 mg PO DAILY #10 tablet 06/02/19 [Rx] Past Medical History HEENT History: Reports: Impaired Vision Respiratory History: Reports: Bronchitis, Recurrent, COPD, Intubation, Previous , Other (See Below) Other Respiratory History: trach due to overdose Genitourinary History: Reports: Urinary Incontinence 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: Musculoskeletal History: Reports: Back Pain, Chronic Neurological History: Reports: Neuropathy, Peripheral Psychiatric History: Reports: Depression Endocrine/Metabolic History: Reports: Obesity/BMI 30+ - Infectious Disease History Infectious Disease History: Reports: Chicken Pox Social & Family History - Family History Family Medical History: Unobtainable - Tobacco Use Smoking Status *Q: Current Some Day Smoker Years of Tobacco use: 5 Packs/Tins Daily: 0.2 - Caffeine Use Caffeine Use: Reports: Coffee Other Caffeine Use: 2-3 large cups - Recreational Drug Use Recreational Drug Use: No ED ROS GENERAL - Review of Systems Review Of Systems: See Below Constitutional: Reports: No Symptoms HEENT: Reports: No Symptoms Respiratory: Reports: Shortness of Breath. Denies: Cough Cardiovascular: Reports: Chest Pain Endocrine: Reports: No Symptoms GI/Abdominal: Reports: No Symptoms : Reports: No Symptoms Musculoskeletal: Reports: No Symptoms Skin: Reports: No Symptoms Neurological: Reports: Other (shaking) ED EXAM, GENERAL - Physical Exam Exam: See Below Exam Limited By: No Limitations General Appearance: Alert, No Apparent Distress Ears: Normal External Exam Nose: Normal Inspection Head: Atraumatic, Normocephalic Neck: Normal Inspection Respiratory/Chest: No Respiratory Distress, Decreased Breath Sounds, Wheezing Cardiovascular: Regular Rate, Rhythm, No Edema, No Murmur GI/Abdominal: Soft, Non-Tender, No Organomegaly, No Mass Back Exam: Normal Inspection EKG INTERPRETATION EKG Date: 06/02/19 Time: 07:16 Rhythm: Other (sinus tachycardia) Rate (Beats/Min): 103 [place]: Normal P-Wave: Present QRS: Normal ST-T: Normal QT: Normal Course - Vital Signs Last Recorded V/S: Last Vital Signs Temp 97.3 F 06/02/19 07:37 Pulse 103 H 06/02/19 07:37 Resp 28 H 06/02/19 07:37 BP 98/60 06/02/19 07:37 Pulse Ox 93 L 06/02/19 07:37 - Orders/Labs/Meds Orders: Active Orders 24 hr Category Date Time Status Cardiac Monitoring [RC] . DIRECTED Care 06/02/19 07:11 Active EKG Documentation Completion [RC] STAT Care 06/02/19 07:12 Active Oxygen Therapy [RC] PRN Care 06/02/19 07:12 Active Peripheral IV Care [RC] . DIRECTED Care 06/02/19 07:12 Active RT Aerosol Therapy [RC] ASDIRECTED Care 06/02/19 07:13 Active Sodium Chloride 0.9% [Saline Flush] Med 06/02/19 07:11 Active 10 ml FLUSH ASDIRECTED PRN Peripheral IV Insertion Adult [OM.PC] Stat Oth 06/02/19 07:11 Ordered Medication Orders Sodium Chloride (Saline Flush) 10 ml FLUSH ASDIRECTED PRN PRN Reason: Keep Vein Open Last Admin: 06/02/19 07:30 Dose: 10 ml Labs: Laboratory Tests 06/02/19 06/02/19 Range/Units 07:30 07:30 WBC 13.21 H (3.98-10.04) K/mm3 RBC 5.17 (3.98-5.22) M/mm3 Hgb 12.5 D (11.2-15.7) gm/dl Hct 40.2 (34.1-44.9) % MCV 77.8 L D (79.4-94.8) fl MCH 24.2 L (25.6-32.2) pg MCHC 31.1 L (32.2-35.5) g/dl RDW Std Deviation 47.6 H (36.4-46.3) fL Plt Count 259 (182-369) K/mm3 MPV 11.5 (9.4-12.3) fl Neut % (Auto) 82.1 H (34.0-71.1) % Lymph % (Auto) 12.2 L (19.3-51.7) % [place] % (Auto) 5.1 (4.7-12.5) % Eos % (Auto) 0.2 L (0.7-5.8) Baso % (Auto) 0.2 (0.1-1.2) % Neut # (Auto) 10.86 H (1.56-6.13) K/mm3 Lymph # (Auto) 1.61 (1.18-3.74) K/mm3 [place] # (Auto) 0.67 H (0.24-0.36) K/mm3 Eos # (Auto) 0.02 L (0.04-0.36) K/mm3 Baso # (Auto) 0.03 (0.01-0.08) K/mm3 Manual Slide Review Normal smear Sodium 144 (136-145) mEq/L Potassium 3.5 (3.5-5.1) mEq/L Chloride 107 (98-107) mEq/L Carbon Dioxide 25 (21-32) mEq/L Anion Gap 15.5 H (5-15) BUN 16 (7-18) mg/dL Creatinine 1.0 (0.55-1.02) mg/dL Est Cr Clr Drug Dosing 51.96 mL/min Estimated GFR (MDRD) 57 (>60) mL/min BUN/Creatinine Ratio 16.0 (14-18) Glucose 196 H (74-106) mg/dL Calcium 8.4 L (8.5-10.1) mg/dL Total Bilirubin 0.5 (0.2-1.0) mg/dL AST 21 (15-37) U/L ALT 33 (14-59) U/L Alkaline Phosphatase 159 H (46-116) U/L Troponin I < 0.017 (0.00-0.056) ng/mL Total Protein 6.9 (6.4-8.2) g/dl Albumin 3.4 (3.4-5.0) g/dl Globulin 3.5 gm/dL Albumin/Globulin Ratio 1.0 (1-2) Meds: Medications Generic Name Dose Route Start Last Admin Trade Name Freq PRN Reason Stop Dose Admin Sodium Chloride 10 ml 06/02/19 07:11 06/02/19 07:30 Saline Flush FLUSH 10 ml ASDIRECTED PRN Administration Keep Vein Open Discontinued Medications Generic Name Dose Route Start Last Admin Trade Name Prema PRN Reason Stop Dose Admin Albuterol/Ipratropium 3 ml 06/02/19 07:12 06/02/19 07:30 Duoneb 3.0-0.5 Mg/3 Ml NEB 06/02/19 07:13 3 ml ONETIME ONE Administration Methylprednisolone Sodium Succinate 125 mg 06/02/19 07:13 06/02/19 07:32 Solu-Medrol IVPUSH 06/02/19 07:14 125 mg ONETIME ONE Administration - Re-Assessments/Exams Free Text/Narrative Re-Assessment/Exam: 06/02/19 08:04 I ordered O2 PRN, IV saline lock, EKG, CXR, labs, duoneb and solu-medrol 125mg IV. 06/02/19 09:17 Her CXR looks good. Her WBC was elevated at 13.24. Her CMP looks good. Her troponin is negative. She feels a little better. I will get her on some prednisone. 06/02/19 09:18 Departure - Departure Time of Disposition: 09:20 Disposition: Home, Self-Care 01 Condition: Good Clinical Impression: COPD exacerbation, Shaky - Discharge Information *PRESCRIPTION DRUG MONITORING PROGRAM REVIEWED*: Not Applicable *COPY OF PRESCRIPTION DRUG MONITORING REPORT IN PATIENT LORAINE: Not Applicable Prescriptions: predniSONE [Prednisone] 40 mg PO DAILY #10 tablet Referrals: PCP,Not In Area [Ordering Only Provider] - Forms: ED Department Discharge Additional Instructions: Take the prednisone daily. Use the albuterol as directed. Please return if you are worse. Sepsis Event Note - Evaluation Sepsis Screening Result: No Definite Risk - Focused Exam Vital Signs: Vital Signs Temp Pulse Resp BP Pulse Ox Pulse Ox 06/02/19 07:37 97.3 F 103 H 28 H 98/60 93 L 06/02/19 07:30 93 L 06/02/19 06:32 97.3 F 111 H 18 115/57 L 98 Date Exam was Performed: 06/02/19 Time Exam was Performed: 09:18 - My Orders Last 24 Hours: My Active Orders 06/02/19 07:11 Cardiac Monitoring [RC] . DIRECTED Sodium Chloride 0.9% [Saline Flush] 10 ml FLUSH ASDIRECTED PRN Peripheral IV Insertion Adult [OM.PC] Stat 06/02/19 07:12 EKG Documentation Completion [RC] STAT Oxygen Therapy [RC] PRN Peripheral IV Care [RC] . DIRECTED 06/02/19 07:13 RT Aerosol Therapy [RC] ASDIRECTED - Assessment/Plan Last 24 Hours: My Active Orders 06/02/19 07:11 Cardiac Monitoring [RC] . DIRECTED Sodium Chloride 0.9% [Saline Flush] 10 ml FLUSH ASDIRECTED PRN Peripheral IV Insertion Adult [OM.PC] Stat 06/02/19 07:12 EKG Documentation Completion [RC] STAT Oxygen Therapy [RC] PRN Peripheral IV Care [RC] . DIRECTED 06/02/19 07:13 RT Aerosol Therapy [RC] ASDIRECTED
--- NOTE | 2019-06-02 08:38 | CR ---
Chest: Portable view of the chest was obtained. Comparison: Prior chest x-ray of 08/23/18. Heart size and mediastinum are within normal limits for portable technique. Lungs are clear with no acute parenchymal change. Bony structures are grossly intact. Impression: 1. Stable chest x-ray from previous exam. 2. Nothing acute is appreciated. Diagnostic code #1 Study was dictated in MDT
[2019-06-02 09:41] VITALS: BP 119/56; PULSE 98
== END 2019-06-02 09:37 | disposition home or self-care (01) ==
LOC: JD.ED 06:26
DX: J44.1 Chronic obstructive pulmonary disease with (acute) exacerbation (principal); R25.1 Tremor, unspecified; F17.210 Nicotine dependence, cigarettes, uncomplicated; Z88.5 Allergy status to narcotic agent; Z79.899 Other long term (current) drug therapy
CPT/HCPCS: 36415; 71045; 80053; 84484; 85025; 93005; 94640; 96374; 99285; J2930; 93010; 99284; J7620-GY

== ENCOUNTER 2019-07-05 12:39 | Emergency (ER) | payer MEDICAID, OTHER, SELFPAY ==
--- NOTE | 2019-07-05 13:39 | EDM.PDOC ---
ED HPI GENERAL MEDICAL PROBLEM - General Chief Complaint: General Stated Complaint: SOB IN LEFT RIB Time Seen by Provider: 07/05/19 13:30 - History of Present Illness INITIAL COMMENTS - FREE TEXT/NARRATIVE: 59-year-old female fell and injured ribs yesterday. Yesterday the patient fell injuring her left ribs she also bumped her left elbow and left knee her knee is working fine she is walking without too much difficulty. Her elbow is working okay she is using her arm without difficulty. She is having some painful inspiration with breathing. This painful inspiration started immediately after she fell, otherwise she seems to be doing okay. She has some underlying lung disease. Left Thoracic Pain Score (Numeric/FACES): 9 - Related Data Allergies Allergy/AdvReac Type Severity Reaction Status Date / Time codeine Allergy Rash Verified 07/05/19 13:17 Home Meds: Home Meds Albuterol [Proventil HFA] 2 puff INH Q4HR 08/23/18 [History] Budesonide/Formoterol [Symbicort 160-4.5 MCG] 2 puff INH BID 08/23/18 [History] Citalopram Hydrobromide [Celexa] 40 mg PO DAILY 08/23/18 [History] Oxybutynin 5 mg PO BID 08/23/18 [History] ARIPiprazole [Abilify] 5 mg PO DAILY 08/24/18 [History] Cetirizine [ZyrTEC] 10 mg PO DAILY 08/24/18 [History] Eletriptan Hydrobromide [Eletriptan HBr] 40 mg PO ASDIRECTED PRN 08/24/18 [ History] Esomeprazole Magnesium 40 mg PO DAILY 08/24/18 [History] Gabapentin [Neurontin] 600 mg PO Q3HR 08/24/18 [History] Montelukast [Singulair] 10 mg PO BEDTIME 08/24/18 [History] OLANZapine [Olanzapine] 5 mg PO DAILY 08/24/18 [History] Pantoprazole [ProTONIX] 40 mg PO DAILY 08/24/18 [History] Tiotropium [Spiriva HandiHaler] 1 cap INH DAILY 08/24/18 [History] Cefuroxime [Ceftin] 250 mg PO BID #10 tab 08/25/18 [Rx] Ferrous Sulfate 325 mg PO BIDMEALS #20 tablet 08/25/18 [Rx] Nicotine [Habitrol] 14 mg TRDERM Q24H #20 patch 08/25/18 [Rx] Ketorolac [Toradol] 10 mg PO TID PRN #15 tab 01/23/19 [Rx] predniSONE [Prednisone] 40 mg PO DAILY #10 tablet 06/02/19 [Rx] Past Medical History HEENT History: Reports: Impaired Vision Respiratory History: Reports: Bronchitis, Recurrent, COPD, Intubation, Previous , Other (See Below) Other Respiratory History: trach due to overdose Genitourinary History: Reports: Urinary Incontinence 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: Musculoskeletal History: Reports: Back Pain, Chronic Neurological History: Reports: Neuropathy, Peripheral Psychiatric History: Reports: Depression Endocrine/Metabolic History: Reports: Obesity/BMI 30+ - Infectious Disease History Infectious Disease History: Reports: Chicken Pox - Past Surgical History HEENT Surgical History: Reports: Oral Surgery, Tonsillectomy GI Surgical History: Reports: Cholecystectomy Social & Family History - Family History Family Medical History: Unobtainable - Tobacco Use Smoking Status *Q: Current Every Day Smoker Years of Tobacco use: 45 Packs/Tins Daily: 0.5 - Caffeine Use Caffeine Use: Reports: Coffee, Soda Other Caffeine Use: 2-3 large cups - Recreational Drug Use Recreational Drug Use: No ED ROS GENERAL - Review of Systems Review Of Systems: See Below Constitutional: Reports: No Symptoms. Denies: Fever, Chills HEENT: Reports: No Symptoms Respiratory: Reports: Pleuritic Chest Pain. Denies: Shortness of Breath, Cough , Sputum Cardiovascular: Reports: Chest Pain (Most likely rib pain as she fell hitting her ribs and had sudden onset pain) GI/Abdominal: Reports: No Symptoms : Reports: No Symptoms Musculoskeletal: Reports: Other (As stated above) Neurological: Reports: No Symptoms Psychiatric: Reports: No Symptoms Hematologic/Lymphatic: Reports: No Symptoms ED EXAM, GENERAL - Physical Exam Exam: See Below Exam Limited By: No Limitations General Appearance: Alert, No Apparent Distress Head: Atraumatic, Normocephalic Neck: Normal Inspection, Supple, Non-Tender, Full Range of Motion Respiratory/Chest: No Respiratory Distress, Crackles (Few crackles noted in the left base), Other (Of the chest wall reveals some discomfort in the left lateral ribs from the mid section on down) Cardiovascular: Regular Rate, Rhythm, No Edema, No Murmur GI/Abdominal: Normal Bowel Sounds, Soft, Non-Tender, Other (Special attention was paid to the left upper quadrant which has no palpable discomfort.) EKG INTERPRETATION EKG Date: 07/05/19 Rhythm: NSR [place]: Normal P-Wave: Present QRS: Other (Voltage especially precordial leads) QT: Normal (It is a little longer than it was on June 11 of this year) Comparison: Change From Previous EKG (Normal QT prolongation compared to prior almost a month ago) EKG Interpretation Comments: Wave progression most likely due to body habitus Course - Vital Signs Last Recorded V/S: Last Vital Signs Temp 36.2 C 07/05/19 16:10 Pulse 76 07/05/19 16:10 Resp 20 07/05/19 16:10 BP 112/68 07/05/19 16:10 Pulse Ox 98 07/05/19 16:10 - Orders/Labs/Meds Orders: Active Orders 24 hr Category Date Time Status EKG Documentation Completion [RC] STAT Care 07/05/19 13:41 Active Labs: Laboratory Tests 07/05/19 Range/Units 14:50 Sodium 142 (136-145) mEq/L Potassium 4.2 (3.5-5.1) mEq/L Chloride 107 (98-107) mEq/L Carbon Dioxide 28 (21-32) mEq/L Anion Gap 11.2 (5-15) BUN 12 (7-18) mg/dL Creatinine 0.8 (0.55-1.02) mg/dL Est Cr Clr Drug Dosing 64.18 mL/min Estimated GFR (MDRD) > 60 (>60) mL/min BUN/Creatinine Ratio 15.0 (14-18) Glucose 97 (74-106) mg/dL Calcium 7.8 L (8.5-10.1) mg/dL Magnesium 1.9 (1.8-2.4) mg/dl - Re-Assessments/Exams Free Text/Narrative Re-Assessment/Exam: 07/05/19 14:41 EKG shows some borderline prolongation of her QT which is new from her last EKG a month ago. X-rays show what could be a very low rib fracture on my to see what radiology says been over the spleen you worry about potential splenic injury however the patient has done well with this does not have any abdominal pain and the injury is now over 24 hours old. I did discuss with the patient the possibility of getting a CT and she would like to hold off on this. But we will check a basic and magnesium to see if this is contributing to her QT prolongation. She had some recent medication changes but she does not know what were waiting to get a med list from her pharmacy. 07/05/19 18:23 Has done well while in the emergency room. We had a hard time getting a reasonable O2 saturation on her but when this was moved to her forehead she did fine she has got artificial nails in place. X-rays negative according to radiology. Labs unremarkable Departure - Departure Time of Disposition: 18:24 Disposition: Home, Self-Care 01 Clinical Impression: Contusion, chest wall - Discharge Information Referrals: PCP,None [Primary Care Provider] - Forms: ED Department Discharge Additional Instructions: Return to the emergency room with any questions problems or worsening symptoms. Tylenol as needed for pain. Follow-up with your regular healthcare provider in 1 week if needed Sepsis Event Note - Evaluation Sepsis Screening Result: No Definite Risk - Focused Exam Vital Signs: Vital Signs Temp Pulse Resp BP Pulse Ox 07/05/19 16:10 36.2 C 76 20 112/68 98 07/05/19 13:17 36.1 C 75 18 108/64 95 Date Exam was Performed: 07/05/19 Time Exam was Performed: 18:20 - My Orders Last 24 Hours: My Active Orders 07/05/19 13:41 EKG Documentation Completion [RC] STAT - Assessment/Plan Last 24 Hours: My Active Orders 07/05/19 13:41 EKG Documentation Completion [RC] STAT
--- NOTE | 2019-07-05 17:28 | CR ---
Chest: 2 views of the chest were obtained. Comparison: Prior chest x-ray of 08/23/18. Heart size and mediastinum are normal. Lung markings are mildly increased which appear chronic. No acute parenchymal change is seen. No acute bony abnormality is appreciated. Impression: 1. Nothing acute is appreciated on 2 view chest x-ray. Diagnostic code #1 This report was dictated in MDT
--- NOTE | 2019-07-05 17:28 | CR ---
Left ribs: 3 views of the left ribs were obtained. Comparison: No prior rib exam. No discrete fracture or other left-sided rib abnormality is appreciated. Impression: 1. No discrete left-sided rib abnormality is appreciated. Diagnostic code #1 This report was dictated in MDT
[2019-07-05 18:41] VITALS: BP 107/62; PULSE 80
== END 2019-07-05 18:41 | disposition home or self-care (01) ==
LOC: JD.ED 12:39
DX: S20.212A Contusion of left front wall of thorax, initial encounter (principal); J44.9 Chronic obstructive pulmonary disease, unspecified; F32.9 Major depressive disorder, single episode, unspecified; G62.9 Polyneuropathy, unspecified; F17.210 Nicotine dependence, cigarettes, uncomplicated; Z68.37 Body mass index [BMI] 37.0-37.9, adult; Z88.5 Allergy status to narcotic agent; Z79.899 Other long term (current) drug therapy; W22.8XXA Striking against or struck by other objects, initial encounter
CPT/HCPCS: 36415; 71046; 71046-26; 71100-26-LT; 71100-LT; 80048; 83735; 93005; 93010; 99283; 99284-25

== ENCOUNTER 2020-05-31 20:26 | Emergency (ER) | payer MEDICAID ==
[2020-05-31 20:38] VITALS: BP 126/69; PULSE 98
--- NOTE | 2020-05-31 20:59 | EDM.PDOC ---
ED HPI GENERAL MEDICAL PROBLEM - General Chief Complaint: ENT Problem Stated Complaint: LT EAR PAIN Time Seen by Provider: 05/31/20 20:35 Source of Information: Reports: Patient History Limitations: Reports: No Limitations - History of Present Illness INITIAL COMMENTS - FREE TEXT/NARRATIVE: Ms. Smith is a pleasant 59-year-old woman who now presents the ED stating that she developed left ear pain with drainage 2 days ago, 05/29/2020. Her pain is made worse if she swallows, she reports feeling a sore throat. She also reports decreased hearing in her left ear, like she is underwater. No recent fever. The patient has been taking OTC acetaminophen for her discomfort. The patient states that she had similar symptoms about 2 months ago. She states that she was seen by an [employer] in [place], but then no problems were found. Here in the ED, the patient is found to be hemodynamically stable, afebrile, saturating 95% on room air. Prior to Wednesday, the patient denies having a recent fever, chills, sore throat, ear pain, nasal or sinus congestion, cough, dyspnea, chest pain, palpitations, nausea, vomiting, constipation, diarrhea, abdominal pain, urinary symptoms, recent weight gain or weight loss, recent bloody bowel movements or black bowel movements, recent joint aches, headaches, or rashes. The patient's PCP is Dr. Aris Zurita. Her Radio Aerial Installer is Dr. Madison Crawford. Her Urologist is Dr. Nir Bobo. She does not recall the name of her [employer] in [place]. She states that she already received an influenza vaccine this season. Left Ear Pain Score (Numeric/FACES): 9 - Related Data Allergies Allergy/AdvReac Type Severity Reaction Status Date / Time codeine Allergy Rash Verified 07/05/19 13:17 Home Meds: Home Meds Albuterol [Proventil HFA] 2 puff INH Q4HR 08/23/18 [History] Budesonide/Formoterol [Symbicort 160-4.5 MCG] 2 puff INH BID 08/23/18 [History] Citalopram Hydrobromide [Celexa] 40 mg PO DAILY 08/23/18 [History] Oxybutynin 5 mg PO BID 08/23/18 [History] ARIPiprazole [Abilify] 5 mg PO DAILY 08/24/18 [History] Cetirizine [ZyrTEC] 10 mg PO DAILY 08/24/18 [History] Eletriptan Hydrobromide [Eletriptan HBr] 40 mg PO ASDIRECTED PRN 08/24/18 [History] Esomeprazole Magnesium 40 mg PO DAILY 08/24/18 [History] Gabapentin [Neurontin] 600 mg PO Q3HR 08/24/18 [History] Montelukast [Singulair] 10 mg PO BEDTIME 08/24/18 [History] OLANZapine [Olanzapine] 5 mg PO DAILY 08/24/18 [History] Pantoprazole [ProTONIX] 40 mg PO DAILY 08/24/18 [History] Tiotropium [Spiriva HandiHaler] 1 cap INH DAILY 08/24/18 [History] Cefuroxime [Ceftin] 250 mg PO BID #10 tab 08/25/18 [Rx] Ferrous Sulfate 325 mg PO BIDMEALS #20 tablet 08/25/18 [Rx] Nicotine [Habitrol] 14 mg TRDERM Q24H #20 patch 08/25/18 [Rx] Ketorolac [Toradol] 10 mg PO TID PRN #15 tab 01/23/19 [Rx] predniSONE [Prednisone] 40 mg PO DAILY #10 tablet 06/02/19 [Rx] Hydrocort/Neomycin/Polymyxin B [Itpqavvo-Vnwyvsvms-DD Otic Susp] 4 drop EARLF TID #1 bottle 05/31/20 [Rx] Past Medical History HEENT History: Reports: Allergic Rhinitis, Impaired Vision Respiratory History: Reports: COPD (PFT-proven) Gastrointestinal History: Reports: GERD Genitourinary History: Reports: Urinary Incontinence (stress incontinence) Neurological History: Reports: Neuropathy, Peripheral Psychiatric History: Reports: Depression Endocrine/Metabolic History: Reports: Diabetes, Type II (dx'd Apr 2020), Obesity/BMI 30+ - Infectious Disease History Infectious Disease History: Reports: Chicken Pox, Influenza - Past Surgical History HEENT Surgical History: Reports: Oral Surgery (dental extractions), T onsillectomy Respiratory Surgical History: Reports: Tracheostomy (2012, following overdose with coma) GI Surgical History: Reports: Cholecystectomy (1986) Female Surgical History: Reports: Other (See Below) (Bladder suspension) Social & Family History - Tobacco Use Tobacco Use Status *Q: Current Every Day Tobacco User Years of Tobacco use: 15 Packs/Tins Daily: 0.5 Packs/Tins Daily Comment: Down from -03/18 ppd Tobacco Use Comment: Started smoking 44 yrs old - Caffeine Use Caffeine Use: Reports: Coffee Other Caffeine Use: 2-3 large cups - Alcohol Use Alcohol Use History: No - Recreational Drug Use Recreational Drug Use: No - Living Situation & Occupation Living situation: Reports: , with Family (Son, daughter + her boyfriend) Occupation: Disabled ED ROS ENT - Review of Systems Review Of Systems: Comprehensive ROS is negative, except as noted in HPI. ED EXAM, ENT - Physical Exam Exam: See Below Exam Limited By: No Limitations General Appearance: Alert, WD/WN, No Apparent Distress Eye Exam: Bilateral Eye: EOMI, PERRL Ears: Other (The right external auditory canal and TM are completely normal. Pain is induced to the left ear with manipulation of the left auricle. The left external auditory canal is swollen sufficiently that I cannot visualize the left TM. There is a thin purulent drainage from the left canal.) Nose: Normal Inspection, Normal Mucousa, No Blood Mouth/Throat: Normal Inspection, Normal Gums, Normal Lips, Normal Oropharynx, No rmal Teeth Head: Atraumatic, Normocephalic Neck: Normal Inspection, Supple, Non-Tender, Full Range of Motion. No: Lymphadenopathy (L), Lymphadenopathy (R) Course - Vital Signs Last Recorded V/S: Last Vital Signs Temp 36.4 C 05/31/20 20:34 Pulse 98 05/31/20 20:34 Resp 14 05/31/20 20:34 BP 126/69 05/31/20 20:34 Pulse Ox 95 05/31/20 20:34 - Re-Assessments/Exams Free Text/Narrative Re-Assessment/Exam: 05/31/20 20:54 The patient appears to have left otitis externa. 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 Departure - Departure Time of Disposition: 20:55 Disposition: Home, Self-Care 01 Condition: Good Clinical Impression: Otitis externa of left ear - Discharge Information *PRESCRIPTION DRUG MONITORING PROGRAM REVIEWED*: Not Applicable *COPY OF PRESCRIPTION DRUG MONITORING REPORT IN PATIENT LORAINE: Not Applicable Prescriptions: Hydrocort/Neomycin/Polymyxin B [Eusklfpp-Bbobhlibw-QC Otic Susp] 4 drop EARLF TID #1 bottle Instructions: Otitis Externa, [id number] Referrals: Aris Dempsey MD [Primary Care Provider] - Madison Crawford Om, MD [Ordering Only Provider] - Nir Bobo MD [Ordering Only Provider] - Forms: ED Department Discharge Additional Instructions: You were seen in the ER for left ear pain and drainage since Wednesday. On examination, you have left otitis externa, also known as "swimmer's ear". A prescription for Cortisporin otic suspension has been submitted to the [facility], located in the [facility] grocery store. Instill 4 drops of Cortisporin otic suspension into your left ear 3 or 4 times a day for the next 10 days, as prescribed. We strongly recommend that you follow up with either your PCP, Dr. Fernando Zurita, or your ENT in [place] after you complete your 10 day course of drops. If any other problems, please do not hesitate to return to the ER. Sepsis Event Note (ED) - Evaluation Sepsis Screening Result: No Definite Risk - Focused Exam Vital Signs: Vital Signs Temp Pulse Resp BP Pulse Ox 05/31/20 20:34 36.4 C 98 14 126/69 95
== END 2020-05-31 21:18 | disposition home or self-care (01) ==
LOC: JD.ED 20:26
DX: H60.92 Unspecified otitis externa, left ear (principal); J44.9 Chronic obstructive pulmonary disease, unspecified; K21.9 Gastro-esophageal reflux disease without esophagitis; E11.42 Type 2 diabetes mellitus with diabetic polyneuropathy; E66.9 Obesity, unspecified; Z68.38 Body mass index [BMI] 38.0-38.9, adult; Z72.0 Tobacco use; Z88.5 Allergy status to narcotic agent; Z79.899 Other long term (current) drug therapy
CPT/HCPCS: 99282; 99283

== ENCOUNTER 2020-09-23 01:19 | Emergency (ER) | payer MEDICAID ==
[2020-09-23 01:34] VITALS: BP 109/62; PULSE 87
[2020-09-23] MEDS ORDERED: Albuterol/Ipratropium 3.0-0.5 MG/3 ML Neb Soln NEB ONE (01:53)
[2020-09-23] MEDS ORDERED: Albuterol 0.083% 2.5 MG/3 ML Neb Soln NEB ONE (03:10)
--- NOTE | 2020-09-23 03:26 | EDM.PDOC ---
ED HPI GENERAL MEDICAL PROBLEM - General Chief Complaint: Respiratory Problem Stated Complaint: NEEDS A NIB TREATMENT Time Seen by Provider: 09/23/20 01:52 Source of Information: Reports: Patient, RN Notes Reviewed - History of Present Illness INITIAL COMMENTS - FREE TEXT/NARRATIVE: 60 yr old female comes in with 2 wk hx of cough. Feels short of breath, has been wheezing. has run out of her albuterol for nebulizer. No known fever. cough has been nornproductive. 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 - Related Data Allergies Allergy/AdvReac Type Severity Reaction Status Date / Time codeine Allergy Rash Verified 09/23/20 01:34 Home Meds: Home Meds Albuterol [Proventil HFA] 2 puff INH Q4HR 08/23/18 [History] Budesonide/Formoterol [Symbicort 160-4.5 MCG] 2 puff INH BID 08/23/18 [History] Citalopram Hydrobromide [Celexa] 40 mg PO DAILY 08/23/18 [History] Oxybutynin 5 mg PO BID 08/23/18 [History] ARIPiprazole [Abilify] 5 mg PO DAILY 08/24/18 [History] Cetirizine [ZyrTEC] 10 mg PO DAILY 08/24/18 [History] Eletriptan Hydrobromide [Eletriptan HBr] 40 mg PO ASDIRECTED PRN 08/24/18 [History] Esomeprazole Magnesium 40 mg PO DAILY 08/24/18 [History] Gabapentin [Neurontin] 600 mg PO Q3HR 08/24/18 [History] Montelukast [Singulair] 10 mg PO BEDTIME 08/24/18 [History] OLANZapine [Olanzapine] 5 mg PO DAILY 08/24/18 [History] Pantoprazole [ProTONIX] 40 mg PO DAILY 08/24/18 [History] Tiotropium [Spiriva HandiHaler] 1 cap INH DAILY 08/24/18 [History] Cefuroxime [Ceftin] 250 mg PO BID #10 tab 08/25/18 [Rx] Ferrous Sulfate 325 mg PO BIDMEALS #20 tablet 08/25/18 [Rx] Nicotine [Habitrol] 14 mg TRDERM Q24H #20 patch 08/25/18 [Rx] Ketorolac [Toradol] 10 mg PO TID PRN #15 tab 01/23/19 [Rx] predniSONE [Prednisone] 40 mg PO DAILY #10 tablet 06/02/19 [Rx] Hydrocort/Neomycin/Polymyxin B [Tqsgbcsw-Lzfesxdph-MT Otic Susp] 4 drop EARLF TID #1 bottle 05/31/20 [Rx] Past Medical History HEENT History: Reports: Allergic Rhinitis, Impaired Vision Respiratory History: Reports: COPD Other Respiratory History: trach due to overdose Gastrointestinal History: Reports: GERD Genitourinary History: Reports: Urinary Incontinence 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: Musculoskeletal History: Reports: Back Pain, Chronic Neurological History: Reports: Neuropathy, Peripheral Psychiatric History: Reports: Depression Endocrine/Metabolic History: Reports: Diabetes, Type II, Obesity/BMI 30+ Hematologic History: Reports: Anemia - Infectious Disease History Infectious Disease History: Reports: Chicken Pox, Influenza - Past Surgical History HEENT Surgical History: Reports: Oral Surgery, Tonsillectomy Respiratory Surgical History: Reports: Tracheostomy GI Surgical History: Reports: Cholecystectomy Female Surgical History: Reports: Other (See Below) Social & Family History - Family History Family Medical History: Unobtainable - Tobacco Use Tobacco Use Status *Q: Current Every Day Tobacco User Years of Tobacco use: 30 Packs/Tins Daily: 0.5 Used Tobacco, but Quit: No Second Hand Smoke Exposure: No - Caffeine Use Caffeine Use: Reports: Coffee, Soda Other Caffeine Use: 2-3 large cups - Recreational Drug Use Recreational Drug Use: No - Living Situation & Occupation Living situation: Reports: , with Family (Son, daughter + her boyfriend) Occupation: Disabled ED ROS GENERAL - Review of Systems Review Of Systems: See Below Constitutional: Reports: Chills. Denies: Fever HEENT: Reports: Other (has been hoarse). Denies: Sinus Problem, Throat Pain Respiratory: Reports: Shortness of Breath, Wheezing Cardiovascular: Denies: Chest Pain GI/Abdominal: Denies: Abdominal Pain, Nausea, Vomiting Musculoskeletal: Reports: No Symptoms Skin: Reports: No Symptoms Neurological: Reports: No Symptoms ED EXAM, GENERAL - Physical Exam Exam: See Below General Appearance: Alert, No Apparent Distress Throat/Mouth: Normal Inspection Head: Atraumatic Neck: Supple Respiratory/Chest: No Respiratory Distress, Wheezing (mild bilat). No: Rales, Rhonchi Cardiovascular: Regular Rate, Rhythm Extremities: No: Pedal Edema, Leg Pain Neurological: Alert, Oriented, No Motor/Sensory Deficits Skin Exam: Warm, Dry, Normal Color Course - Vital Signs Last Recorded V/S: Last Vital Signs Temp 98.7 F 09/23/20 01:32 Pulse 87 09/23/20 01:32 Resp 16 09/23/20 01:32 BP 109/62 09/23/20 01:32 Pulse Ox 92 L 09/23/20 03:21 - Orders/Labs/Meds Orders: Active Orders 24 hr Category Date Time Status Chest 1V Frontal [CR] Stat Exams 09/23/20 02:36 Taken Meds: Medications Discontinued Medications Generic Name Dose Route Start Last Admin Trade Name Cristianq PRN Reason Stop Dose Admin Albuterol 2.5 mg 09/23/20 03:10 09/23/20 03:20 Albuterol 0.083% 2.5 Mg/3 Ml Neb Soln NEB 09/23/20 03:11 2.5 mg ONETIME ONE Administration Albuterol/Ipratropium 3 ml 09/23/20 01:53 09/23/20 01:57 Albuterol/Ipratropium 3.0-0.5 Mg/3 Ml Neb Soln NEB 09/23/20 01:54 3 ml ONETIME ONE Administration - Re-Assessments/Exams Free Text/Narrative Re-Assessment/Exam: 09/23/20 04:35 Pt felt better after duoneb. CXR does not show apparent infiltrate. Discharge instr. as documented. Departure - Departure Time of Disposition: 03:23 Disposition: Home, Self-Care 01 Condition: Fair Clinical Impression: Laryngitis, Bronchitis - Discharge Information Instructions: Acute Bronchitis, Adult, [id number], Laryngitis, [id number] Referrals: PCP,Not In Area [Primary Care Provider] - Forms: ED Department Discharge Additional Instructions: ZPack antibiotic, 2 pills today and than 1 daily for the next 4 days. Continue albuterol neb treatments q 4 to 6 hr if needed for wheezing or difficulty breathing. Follow up clinic in about 5 to 7 days for recheck. Return to ED as needed if symptoms worsening in any way. Sepsis Event Note (ED) - Evaluation Sepsis Screening Result: No Definite Risk - Focused Exam Vital Signs: Vital Signs Temp Pulse Resp BP Pulse Ox Pulse Ox 09/23/20 03:21 92 L 09/23/20 01:57 94 L 09/23/20 01:32 98.7 F 87 16 109/62 94 L - My Orders Last 24 Hours: My Active Orders 09/23/20 02:36 Chest 1V Frontal [CR] Stat - Assessment/Plan Last 24 Hours: My Active Orders 09/23/20 02:36 Chest 1V Frontal [CR] Stat
--- NOTE | 2020-09-23 07:26 | CR ---
Chest: Portable view of the chest was obtained. Comparison: Prior chest x-ray of 07/05/19. Heart size and mediastinum are within normal limits for portable technique. Lungs are clear with no acute parenchymal change. No acute osseous abnormality is appreciated. Impression: 1. Nothing acute is appreciated on portable chest x-ray. Diagnostic code #1
== END 2020-09-23 03:35 | disposition home or self-care (01) ==
LOC: JD.ED 01:19
DX: J40 Bronchitis, not specified as acute or chronic (principal); J04.0 Acute laryngitis; J44.9 Chronic obstructive pulmonary disease, unspecified; E66.9 Obesity, unspecified; E11.42 Type 2 diabetes mellitus with diabetic polyneuropathy; K21.9 Gastro-esophageal reflux disease without esophagitis; Z72.0 Tobacco use; Z88.5 Allergy status to narcotic agent; Z79.899 Other long term (current) drug therapy
CPT/HCPCS: 71045; 71045-26; 94640; 99283; 99285-25; J7620-GY

== ENCOUNTER 2021-06-09 17:03 | Observation (INO) | payer MEDICAID ==
[2021-06-09] MEDS ORDERED: Albuterol/Ipratropium 3.0-0.5 MG/3 ML Neb Soln NEB ONE (17:44)
[2021-06-09] MEDS ORDERED: predniSONE 20 MG Tab PO ONE (17:44)
[2021-06-09] MEDS ORDERED: Albuterol 0.083% 2.5 MG/3 ML Neb Soln NEB ONE (18:46)
[2021-06-09] MEDS ORDERED: methylPREDNISolone Sodium Succinate 125 MG/2 ML SDV IVPUSH ONE (18:52)
[2021-06-09 19:47] LABS: CORONAVIRUS COVID-19 NAA NEGATIVE (NEGATIVE)
[2021-06-09] MEDS ORDERED: Acetaminophen 325 MG Tab PO ONE (20:14)
[2021-06-09] MEDS ORDERED: Albuterol 0.083% 2.5 MG/3 ML Neb Soln NEB PRN (22:26)
[2021-06-10] MEDS ORDERED: Acetaminophen 325 MG Tab PO PRN (00:05)
[2021-06-10] MEDS: Albuterol/Ipratropium 3.0-0.5 MG/3 ML Neb Soln NEB SCH ×3 (05:12→20:17)
[2021-06-10] MEDS ORDERED: Morphine 2 MG/ML SYRINGE IVPUSH PRN (06:40)
[2021-06-10] MEDS ORDERED: Ondansetron 4 MG Tab.DIS PO PRN (06:40)
[2021-06-10] MEDS ORDERED: Sodium Chloride 0.9% 10 ML Syringe FLUSH PRN (06:40)
[2021-06-10] MEDS ORDERED: oxyCODONE 5 MG Tab PO PRN (06:40)
[2021-06-10 07:27] LABS: HEMOGLOBIN A1C 6.6 %
[2021-06-10] MEDS: methylPREDNISolone Sodium Succinate 125 MG/2 ML SDV IVPUSH SCH ×3 (08:06→20:09)
[2021-06-10] MEDS: cefTRIAXone 2 GM in Sodium Chloride 0.9% 100 ML IV SCH (08:09)
[2021-06-10] MEDS: Enoxaparin 40 MG/0.4 ML Syringe SUBCUT SCH (08:12)
[2021-06-10] MEDS: Nicotine 21 MG/24 Hr Patch TRDERM SCH (08:13)
[2021-06-10] MEDS: Insulin Regular, Human 100 Units/ML 3 ML Vial SUBCUT SCH ×3 (08:39→18:44)
[2021-06-10] MEDS ORDERED: Pantoprazole 40 MG Tab.CR PO SCH (09:00)
[2021-06-10] MEDS ORDERED: Gabapentin 600 MG Tab PO SCH (09:00)
[2021-06-10] MEDS ORDERED: Benzonatate 100 MG Cap PO PRN (10:49)
[2021-06-10] MEDS ORDERED: Methocarbamol 500 MG Tab PO PRN (13:39)
[2021-06-10] MEDS ORDERED: Albuterol 6.7 GM Inhaler INH PRN (13:39)
[2021-06-10] MEDS ORDERED: Melatonin 3 MG Tab PO PRN (13:49)
[2021-06-10] MEDS: ARIPiprazole 5 MG Tab PO SCH (14:20)
[2021-06-10] MEDS: Oxybutynin 5 MG Tab PO SCH ×2 (14:20→20:11)
[2021-06-10] MEDS: Gabapentin 600 MG Tab PO SCH ×2 (16:45→20:12)
[2021-06-10] MEDS: Cetirizine 10 MG Tab PO SCH (20:09)
[2021-06-10] MEDS: Famotidine 20 MG Tab PO SCH (20:10)
[2021-06-10] MEDS: metFORMIN 500 MG Tab PO SCH (20:11)
[2021-06-10] MEDS: Formoterol/Mometasone 200-5 MCG 8.8 GM Inhaler IH SCH (20:17)
[2021-06-10] MEDS ORDERED: Triamcinolone Acetonide 0.5% Crm 15 GM Tube TOP SCH (21:00)
[2021-06-11] MEDS: Ketorolac 10 MG Tab PO PRN ×2 (01:10→12:08)
[2021-06-11] MEDS: Gabapentin 600 MG Tab PO SCH ×4 (01:10→12:08)
[2021-06-11] MEDS: Albuterol/Ipratropium 3.0-0.5 MG/3 ML Neb Soln NEB SCH (05:19)
[2021-06-11] MEDS ORDERED: MIRABEGRON 50 MG PO SCH (09:00)
[2021-06-11] MEDS ORDERED: Citalopram 20 MG Tab PO SCH (09:00)
[2021-06-11] MEDS ORDERED: Tiotropium Bromide 4 GM Inhalation Spray (2.5mcg/1 dose; 10 doses) INH SCH (09:00)
[2021-06-11] MEDS ORDERED: Triamcinolone Acetonide 0.5% Crm 15 GM Tube TOP SCH (09:00)
[2021-06-11] MEDS ORDERED: Pantoprazole 40 MG Tab.CR PO SCH (09:00)
[2021-06-11] MEDS ORDERED: ARIPiprazole 5 MG Tab PO SCH (09:00)
[2021-06-11] MEDS: Formoterol/Mometasone 200-5 MCG 8.8 GM Inhaler IH SCH (09:22)
[2021-06-11] MEDS: Insulin Regular, Human 100 Units/ML 3 ML Vial SUBCUT SCH ×2 (09:34→12:09)
[2021-06-11] MEDS: Nicotine 21 MG/24 Hr Patch TRDERM SCH (09:35)
[2021-06-11] MEDS: methylPREDNISolone Sodium Succinate 125 MG/2 ML SDV IVPUSH SCH ×2 (09:36→14:11)
[2021-06-11] MEDS: Enoxaparin 40 MG/0.4 ML Syringe SUBCUT SCH (09:37)
[2021-06-11] MEDS: ARIPiprazole 5 MG Tab PO SCH (09:37)
[2021-06-11] MEDS: metFORMIN 500 MG Tab PO SCH (09:37)
[2021-06-11] MEDS: Cetirizine 10 MG Tab PO SCH (09:38)
[2021-06-11] MEDS: Famotidine 20 MG Tab PO SCH (09:38)
[2021-06-11] MEDS: Oxybutynin 5 MG Tab PO SCH ×2 (09:38→14:11)
[2021-06-11] MEDS: cefTRIAXone 2 GM in Sodium Chloride 0.9% 100 ML IV SCH (09:41)
[2021-06-11 11:40] VITALS: BP 121/71; PULSE 75
== END 2021-06-11 14:50 | disposition home or self-care (01) ==
LOC: JD.ED 17:03 → JD.MS 20:16
PROVIDERS: ADMIT Internal Medicine; ATTEND Internal Medicine
DX: J44.1 Chronic obstructive pulmonary disease with (acute) exacerbation (principal); E11.42 Type 2 diabetes mellitus with diabetic polyneuropathy; K21.9 Gastro-esophageal reflux disease without esophagitis; E11.69 Type 2 diabetes mellitus with other specified complication; E66.9 Obesity, unspecified; H54.7 Unspecified visual loss; F17.210 Nicotine dependence, cigarettes, uncomplicated; Z88.5 Allergy status to narcotic agent; Z68.30 Body mass index [BMI] 30.0-30.9, adult; Z79.52 Long term (current) use of systemic steroids; Z79.84 Long term (current) use of oral hypoglycemic drugs; Z79.51 Long term (current) use of inhaled steroids; Z79.899 Other long term (current) drug therapy; Z20.822 Contact with and (suspected) exposure to COVID-19
CPT/HCPCS: 0240U; 36415; 71045; 80048; 80053; 82947; 83036; 85025; 86140; 87651; 94640; 94761; 96365; 96366; 96372; 96375; 96376; 99285; A9270; G0378; J0696; J1650; J1815; J2930; J7512; 96374; 99284; J7620-GY

== ENCOUNTER 2021-06-15 20:54 | Emergency (ER) | payer MEDICAID ==
[2021-06-15 21:07] VITALS: BP 134/82; PULSE 104
[2021-06-15] MEDS ORDERED: Fluconazole 100 MG Tab PO ONE (21:36)
== END 2021-06-15 22:30 | disposition home or self-care (01) ==
LOC: JD.ED 20:54
DX: B37.0 Candidal stomatitis (principal); J44.9 Chronic obstructive pulmonary disease, unspecified; E11.9 Type 2 diabetes mellitus without complications; K21.9 Gastro-esophageal reflux disease without esophagitis; E66.9 Obesity, unspecified; Z68.35 Body mass index [BMI] 35.0-35.9, adult; Z79.899 Other long term (current) drug therapy; Z77.22 Contact with and (suspected) exposure to environmental tobacco smoke (acute) (chronic); Z79.84 Long term (current) use of oral hypoglycemic drugs; Z88.5 Allergy status to narcotic agent
CPT/HCPCS: 99282; A9270; 99283

== ENCOUNTER 2022-03-16 22:00 | Emergency (ER) | payer MEDICAID ==
[2022-03-16 23:27] VITALS: BP 147/80; PULSE 68
== END 2022-03-17 01:26 | disposition home or self-care (01) ==
LOC: JD.ED 22:00
DX: S90.32XA Contusion of left foot, initial encounter (principal); J44.9 Chronic obstructive pulmonary disease, unspecified; K21.9 Gastro-esophageal reflux disease without esophagitis; E11.42 Type 2 diabetes mellitus with diabetic polyneuropathy; F17.210 Nicotine dependence, cigarettes, uncomplicated; Z88.5 Allergy status to narcotic agent; Z79.84 Long term (current) use of oral hypoglycemic drugs; Z79.899 Other long term (current) drug therapy; W23.0XXA Caught, crushed, jammed, or pinched between moving objects, initial encounter
CPT/HCPCS: 73630-26-LT; 73630-LT; 99283

== ENCOUNTER 2022-05-05 01:16 | Emergency (ER) | payer MEDICAID ==
[2022-05-05 01:51] VITALS: BP 105/54; PULSE 103
[2022-05-05] MEDS ORDERED: predniSONE 20 MG Tab PO ONE ×2 (01:52→01:59)
[2022-05-05] MEDS ORDERED: Albuterol/Ipratropium 3.0-0.5 MG/3 ML Neb Soln NEB ONE (02:00)
[2022-05-05 02:43] LABS: CORONAVIRUS COVID-19 NAA NEGATIVE (NEGATIVE)
[2022-05-05] MEDS ORDERED: Sodium Chloride 0.9% 10 ML Syringe FLUSH ONE (02:54)
[2022-05-05] MEDS ORDERED: Iopamidol 755 Mg/ML 100 ML Bottle IVPUSH ONE (02:54)
[2022-05-05] MEDS ORDERED: Sodium Chloride 0.9% 100 ML IV SCH (03:00)
[2022-05-05] MEDS ORDERED: Doxycycline Monohydrate 100 MG Cap PO ONE (04:23)
== END 2022-05-05 04:50 | disposition home or self-care (01) ==
LOC: JD.ED 01:16
DX: J44.1 Chronic obstructive pulmonary disease with (acute) exacerbation (principal); J18.9 Pneumonia, unspecified organism; K21.9 Gastro-esophageal reflux disease without esophagitis; E11.42 Type 2 diabetes mellitus with diabetic polyneuropathy; Z88.5 Allergy status to narcotic agent; Z79.899 Other long term (current) drug therapy; Z79.84 Long term (current) use of oral hypoglycemic drugs; Z20.822 Contact with and (suspected) exposure to COVID-19
CPT/HCPCS: 0240U; 36415; 71045; 71275; 80053; 83880; 84484; 85025; 85379; 93005; 94640; 99285; A9270; J3490; J7512; Q9967; 93010; 99284; J7620-GY

== ENCOUNTER 2022-07-22 02:15 | Emergency (ER) | payer MEDICAID ==
[2022-07-22] MEDS ORDERED: Sodium Chloride 0.9% 10 ML Syringe FLUSH PRN (02:43)
[2022-07-22] MEDS ORDERED: methylPREDNISolone Sodium Succinate 125 MG/2 ML SDV IVPUSH ONE (02:43)
[2022-07-22] MEDS ORDERED: Albuterol/Ipratropium 3.0-0.5 MG/3 ML Neb Soln NEB ONE (02:43)
[2022-07-22 02:58] LABS: BASOPHILS ABSOLUTE AUTO 0.08 K/mm3 (0.01-0.08); BASOPHILS PERCENT AUTO 0.9 % (0.1-1.2); EOSINOPHILS ABSOLUTE AUTO 0.47 K/mm3 (0.04-0.36); HEMATOCRIT 37.3 % (34.1-44.9); HEMOGLOBIN 11.6 gm/dl (11.2-15.7); IMMATURE GRAN ABSOLUTE AUTO 0.02 K/mm3 (0.00-0.10); IMMATURE GRAN PERCENT AUTO 0.2 % (<=1.0); LYMPHOCYTES ABSOLUTE AUTO 2.04 K/mm3 (1.18-3.74); LYMPHOCYTES PERCENT AUTO 21.7 % (19.3-51.7); MEAN CORPUSCULAR HEMOGLOBIN 23.2 pg (25.6-32.2); MEAN CORPUSCULAR HGB CONC 31.1 g/dl (32.2-35.5); MEAN CORPUSCULAR VOLUME 74.6 fl (79.4-94.8); MEAN PLATELET VOLUME 11.1 fl (9.4-12.3); MONOCYTES PERCENT AUTO 7.4 % (4.7-12.5); NEUTROPHILS ABSOLUTE AUTO 6.09 K/mm3 (1.56-6.13); NEUTROPHILS PERCENT AUTO 64.8 % (34.0-71.1); PLATELET COUNT,PLT 350 K/mm3 (182-369)
[2022-07-22 03:19] LABS: A/G RATIO 0.6 (1-2); ALBUMIN 2.8 g/dl (3.4-5.0); ANION GAP 11.6 (5-15); BILIRUBIN TOTAL 0.4 mg/dL (0.2-1.0); BUN/CREATININE RATIO 4.4 (14-18); CREATININE 0.9 mg/dL (0.55-1.02); EST CRCL DRUG DOSING (CG) 54.99 mL/min; POTASSIUM,K 3.6 mEq/L (3.5-5.1); PROTEIN TOTAL,TP 7.2 g/dl (6.4-8.2)
[2022-07-22 03:41] LABS: CORONAVIRUS COVID-19 NAA NEGATIVE (NEGATIVE); INFLUENZA A NAA NEGATIVE (NEGATIVE); RESPIRATORY SYNCYTIAL VIR NAA NEGATIVE (NEGATIVE)
[2022-07-22] MEDS ORDERED: SUMAtriptan 50 MG Tab PO ONE (04:31)
[2022-07-22] MEDS ORDERED: Codeine/Promethazine 10-6.25 MG/5 ML Syrup 5 ML UD Cup PO ONE (04:35)
[2022-07-22] MEDS ORDERED: Ondansetron 4 MG Tab.DIS PO ONE (04:36)
[2022-07-22 04:54] VITALS: BP 120/85; PULSE 73
== END 2022-07-22 04:56 | disposition home or self-care (01) ==
LOC: JD.ED 02:15
DX: J44.1 Chronic obstructive pulmonary disease with (acute) exacerbation (principal); J04.0 Acute laryngitis; K21.9 Gastro-esophageal reflux disease without esophagitis; E11.42 Type 2 diabetes mellitus with diabetic polyneuropathy; Z88.5 Allergy status to narcotic agent; Z79.899 Other long term (current) drug therapy; Z79.84 Long term (current) use of oral hypoglycemic drugs; Z86.16 Personal history of COVID-19; Z72.0 Tobacco use; Z20.822 Contact with and (suspected) exposure to COVID-19
CPT/HCPCS: 0241U; 36415; 71045; 80053; 85025; 94640; 96374; 99285; A9270; J2930; J3490; 99284; J7620-GY

== ENCOUNTER 2022-08-16 00:12 | Emergency (ER) | payer MEDICAID ==
[2022-08-16] MEDS ORDERED: Cephalexin 500 MG Cap PO ONE ×2 (00:31→00:50)
[2022-08-16] MEDS ORDERED: Acetaminophen/HYDROcodone 325-10 MG Tab PO ONE (00:32)
[2022-08-16 01:01] VITALS: BP 119/78; PULSE 87
== END 2022-08-16 01:02 | disposition home or self-care (01) ==
LOC: JD.ED 00:12
DX: L73.9 Follicular disorder, unspecified (principal); J44.9 Chronic obstructive pulmonary disease, unspecified; K21.9 Gastro-esophageal reflux disease without esophagitis; E11.42 Type 2 diabetes mellitus with diabetic polyneuropathy; F17.210 Nicotine dependence, cigarettes, uncomplicated; Z86.16 Personal history of COVID-19; Z88.5 Allergy status to narcotic agent; Z79.899 Other long term (current) drug therapy; Z79.84 Long term (current) use of oral hypoglycemic drugs
CPT/HCPCS: 99283; A9270

== ENCOUNTER 2023-01-24 14:14 | Emergency (ER) | payer MEDICAID ==
[2023-01-24] MEDS ORDERED: Sodium Chloride 0.9% 10 ML Syringe FLUSH PRN (14:36)
[2023-01-24] MEDS ORDERED: Sodium Chloride 0.9% 1,000 ML IV ONE (14:40)
[2023-01-24] MEDS ORDERED: Prochlorperazine 10 MG/2 ML SDV IVPUSH ONE (14:41)
[2023-01-24] MEDS ORDERED: Ketorolac 30 MG/ML SDV IVPUSH ONE (14:41)
[2023-01-24 15:16] LABS: BASOPHILS ABSOLUTE AUTO 0.1 K/mm3 (0.0-0.2); BASOPHILS PERCENT AUTO 1.1 % (0.0-1.0); EOSINOPHILS ABSOLUTE AUTO 0.1 K/mm3 (0.0-0.4); EOSINOPHILS PERCENT AUTO 2.4 % (0.0-6.0); HEMATOCRIT 38.8 % (37.0-47.0); HEMOGLOBIN 12.4 gm/dl (12.0-16.0); IMMATURE GRAN ABSOLUTE AUTO 0.01 K/mm3 (0.00-0.05); IMMATURE GRAN PERCENT AUTO 0.2 % (0.0-0.4); LYMPHOCYTES ABSOLUTE AUTO 1.6 K/mm3 (1.0-4.8); LYMPHOCYTES PERCENT AUTO 34.4 % (24.0-44.0); MEAN CORPUSCULAR HEMOGLOBIN 24.1 pg (28.0-32.0); MEAN CORPUSCULAR VOLUME 75.3 fl (83.0-99.0); MEAN PLATELET VOLUME 11.3 fl (9.4-12.3); MONOCYTES ABSOLUTE AUTO 0.6 K/mm3 (0.0-0.8); MONOCYTES PERCENT AUTO 13.3 % (0.0-8.0); NEUTROPHILS ABSOLUTE AUTO 2.2 K/mm3 (1.8-7.7); NEUTROPHILS PERCENT AUTO 48.6 % (41.0-71.0); PLATELET COUNT,PLT 263 K/mm3 (150-400); RED BLOOD CELL COUNT 5.15 M/mm3 (4.10-5.30); WHITE BLOOD CELL COUNT,WBC 4.51 K/mm3 (3.9-11.3)
[2023-01-24 15:33] LABS: A/G RATIO 0.8 (1-2); ANION GAP 13.3 (5-15); BILIRUBIN TOTAL 0.3 mg/dL (0.2-1.0); BUN/CREATININE RATIO 5.6 (14-18); CALCIUM 8.3 mg/dL (8.5-10.1); CREATININE 0.9 mg/dL (0.55-1.02); EST CRCL DRUG DOSING (CG) 54.99 mL/min; POTASSIUM,K 3.3 mEq/L (3.5-5.1)
[2023-01-24 16:30] LABS: CORONAVIRUS COVID-19 NAA NEGATIVE (NEGATIVE); INFLUENZA A NAA NEGATIVE (NEGATIVE); RESPIRATORY SYNCYTIAL VIR NAA NEGATIVE (NEGATIVE)
[2023-01-24 18:19] VITALS: BP 111/65; PULSE 88
== END 2023-01-24 18:08 | disposition home or self-care (01) ==
LOC: JD.ED 14:14
DX: R19.7 Diarrhea, unspecified (principal); R51.9 Headache, unspecified; J44.9 Chronic obstructive pulmonary disease, unspecified; K21.9 Gastro-esophageal reflux disease without esophagitis; E11.42 Type 2 diabetes mellitus with diabetic polyneuropathy; F17.210 Nicotine dependence, cigarettes, uncomplicated; Z88.5 Allergy status to narcotic agent; Z86.16 Personal history of COVID-19; Z79.899 Other long term (current) drug therapy; Z79.84 Long term (current) use of oral hypoglycemic drugs; Z20.822 Contact with and (suspected) exposure to COVID-19
CPT/HCPCS: 0241U; 36415; 80053; 83735; 85025; 86140; 96361; 96374; 96375; 99284; J0780; J1885; J3490; J7030

== ENCOUNTER 2023-09-30 18:47 | Inpatient (IN) | payer MEDICAID ==
[2023-09-30] MEDS ORDERED: Sodium Chloride 0.9% 10 ML Syringe FLUSH PRN (19:35)
[2023-09-30] MEDS: Sodium Chloride 0.9% 1,000 ML IV SCH (19:46)
[2023-09-30 19:49] LABS: BASOPHILS PERCENT AUTO 0.4 % (0.0-1.0); EOSINOPHILS ABSOLUTE AUTO 0.1 K/mm3 (0.0-0.4); EOSINOPHILS PERCENT AUTO 0.8 % (0.0-6.0); HEMATOCRIT 35.5 % (37.0-47.0); HEMOGLOBIN 11.3 gm/dl (12.0-16.0); IMMATURE GRAN ABSOLUTE AUTO 0.04 K/mm3 (0.00-0.05); IMMATURE GRAN PERCENT AUTO 0.4 % (0.0-0.4); LYMPHOCYTES ABSOLUTE AUTO 0.8 K/mm3 (1.0-4.8); LYMPHOCYTES PERCENT AUTO 7.2 % (24.0-44.0); MEAN CORPUSCULAR HEMOGLOBIN 24.9 pg (28.0-32.0); MEAN CORPUSCULAR HGB CONC 31.8 g/dl (32.0-36.0); MEAN CORPUSCULAR VOLUME 78.4 fl (83.0-99.0); MEAN PLATELET VOLUME 10.3 fl (9.4-12.3); MONOCYTES ABSOLUTE AUTO 0.5 K/mm3 (0.0-0.8); MONOCYTES PERCENT AUTO 4.4 % (0.0-8.0); NEUTROPHILS ABSOLUTE AUTO 9.1 K/mm3 (1.8-7.7); NEUTROPHILS PERCENT AUTO 86.8 % (41.0-71.0); PLATELET COUNT,PLT 357 K/mm3 (150-400); RED BLOOD CELL COUNT 4.53 M/mm3 (4.10-5.30); WHITE BLOOD CELL COUNT,WBC 10.44 K/mm3 (3.9-11.3)
[2023-09-30 20:19] LABS: A/G RATIO 0.6 (1-2); ALBUMIN 2.3 g/dl (3.4-5.0); ANION GAP 14.8 (5-15); BILIRUBIN TOTAL 0.6 mg/dL (0.2-1.0); CREATININE 0.8 mg/dL (0.55-1.02); EST CRCL DRUG DOSING (CG) 53.04 mL/min; POTASSIUM,K 2.8 mEq/L (3.5-5.1); PROTEIN TOTAL,TP 6.4 g/dl (6.4-8.2); TSH 0.575 uIU/mL (0.358-3.74)
[2023-09-30] MEDS: Metoclopramide 10 MG/2 ML SDV IVPUSH ONE (21:16)
[2023-09-30] MEDS: Potassium Chloride 10 MEQ in Premix Bag 1 BAG IV SCH (22:14)
[2023-09-30 22:51] LABS: BARBITURATE SCREEN,URINE PRESUMPTIVE POSITIVE (CUTOFF=200); BENZODIAZEPINES SCREEN,URINE PRESUMPTIVE POSITIVE (CUTOFF=150); BUPRENORPHINE SCREEN,URINE NEGATIVE (CUTOFF=10); METHADONE SCREEN, URINE NEGATIVE (CUTOFF=200); METHAMPHETAMINES SCREEN, URINE NEGATIVE (CUTOFF=500); OXYCODONE SCREEN,URINE NEGATIVE (CUT0FF=100); THC SCREEN,URINE 20 NG/ML NEGATIVE (CUTOFF=50)
[2023-09-30 23:02] LABS: AMPHETAMINES SCREEN, URINE NEGATIVE (CUTOFF=500)
[2023-10-01] MEDS: Potassium Chloride 100 ML ONE ×2 (14:00→15:00)
[2023-10-01 16:53] LABS: HEMATOCRIT 37.3 % (37.0-47.0); HEMOGLOBIN 11.5 gm/dl (12.0-16.0); MEAN CORPUSCULAR HEMOGLOBIN 24.6 pg (28.0-32.0); MEAN CORPUSCULAR HGB CONC 30.8 g/dl (32.0-36.0); MEAN CORPUSCULAR VOLUME 79.9 fl (83.0-99.0); MEAN PLATELET VOLUME 11.3 fl (9.4-12.3); PLATELET COUNT,PLT 368 K/mm3 (150-400); RED BLOOD CELL COUNT 4.67 M/mm3 (4.10-5.30); WHITE BLOOD CELL COUNT,WBC 11.47 K/mm3 (3.9-11.3)
[2023-10-01] MEDS: Ondansetron 4 MG/2 ML SDV IV PRN (16:58)
[2023-10-01 17:12] LABS: ANION GAP 17.4 (5-15); CALCIUM 8.4 mg/dL (8.5-10.1); EST CRCL DRUG DOSING (CG) 42.43 mL/min; POTASSIUM,K 4.4 mEq/L (3.5-5.1)
[2023-10-01] MEDS: Magnesium Sulfate/Water 50 ML ONE (18:06)
[2023-10-01] MEDS: LORazepam 2 MG/ML SDV ONE (18:09)
[2023-10-01] MEDS: Ondansetron 4 MG/2 ML SDV ONE ×2 (18:09→18:10)
[2023-10-01] MEDS: Ketorolac 30 MG/ML SDV ONE (18:10)
[2023-10-01] MEDS: Acetaminophen 325 MG Tab PO PRN (23:16)
[2023-10-02 06:24] LABS: HEMATOCRIT 32.3 % (37.0-47.0); HEMOGLOBIN 10.4 gm/dl (12.0-16.0); MEAN CORPUSCULAR HEMOGLOBIN 25.2 pg (28.0-32.0); MEAN CORPUSCULAR HGB CONC 32.2 g/dl (32.0-36.0); MEAN CORPUSCULAR VOLUME 78.2 fl (83.0-99.0); MEAN PLATELET VOLUME 10.5 fl (9.4-12.3); PLATELET COUNT,PLT 309 K/mm3 (150-400); RED BLOOD CELL COUNT 4.13 M/mm3 (4.10-5.30); WHITE BLOOD CELL COUNT,WBC 7.01 K/mm3 (3.9-11.3)
[2023-10-02 06:46] LABS: A/G RATIO 0.6 (1-2); ALBUMIN 2.2 g/dl (3.4-5.0); ANION GAP 14.5 (5-15); BILIRUBIN TOTAL 0.4 mg/dL (0.2-1.0); BUN/CREATININE RATIO 11.3 (14-18); CREATININE 0.8 mg/dL (0.55-1.02); EST CRCL DRUG DOSING (CG) 53.04 mL/min; MAGNESIUM 1.6 mg/dL (1.8-2.4); POTASSIUM,K 3.5 mEq/L (3.5-5.1); PROTEIN TOTAL,TP 5.8 g/dl (6.4-8.2)
[2023-10-02] MEDS: Enoxaparin 40 MG/0.4 ML Syringe SUBCUT SCH (09:58)
[2023-10-02] MEDS: Potassium Chloride 100 ML ONE ×2 (19:26)
[2023-10-02] MEDS: Ondansetron 4 MG/2 ML SDV ONE (19:26)
[2023-10-02] MEDS: Magnesium Sulfate/Water 4 GM in Premix Bag 1 BAG IV ONE (19:54)
[2023-10-02] MEDS: Potassium Chloride 20 MEQ Tab.ER PO ONE (19:55)
[2023-10-02] MEDS ORDERED: Sennosides 8.6 MG Tab PO PRN (21:06)
[2023-10-03 06:02] LABS: HEMATOCRIT 32.9 % (37.0-47.0); HEMOGLOBIN 10.7 gm/dl (12.0-16.0); MEAN CORPUSCULAR HEMOGLOBIN 25.1 pg (28.0-32.0); MEAN CORPUSCULAR HGB CONC 32.5 g/dl (32.0-36.0); MEAN PLATELET VOLUME 10.4 fl (9.4-12.3); PLATELET COUNT,PLT 305 K/mm3 (150-400); RED BLOOD CELL COUNT 4.27 M/mm3 (4.10-5.30); WHITE BLOOD CELL COUNT,WBC 5.56 K/mm3 (3.9-11.3)
[2023-10-03 06:23] LABS: A/G RATIO 0.6 (1-2); ALBUMIN 2.1 g/dl (3.4-5.0); ANION GAP 10.5 (5-15); BILIRUBIN TOTAL 0.3 mg/dL (0.2-1.0); CREATININE 0.8 mg/dL (0.55-1.02); EST CRCL DRUG DOSING (CG) 53.04 mL/min; MAGNESIUM 1.9 mg/dL (1.8-2.4); PHOSPHORUS 2.1 mg/dL (2.6-4.7); POTASSIUM,K 3.5 mEq/L (3.5-5.1); PROTEIN TOTAL,TP 5.8 g/dl (6.4-8.2)
[2023-10-03] MEDS: Cholecalciferol (Vitamin D3) 5,000 UNIT Cap PO SCH (10:50)
[2023-10-03] MEDS: Citalopram 10 MG Tab PO SCH (10:50)
[2023-10-03] MEDS: Vitamin B6-pyridOXINE 50 MG Tab PO SCH (10:50)
[2023-10-03] MEDS: Cyanocobalamin (Vitamin B12) 1,000 MCG Tab PO SCH (10:51)
[2023-10-03] MEDS: Folic Acid 1 MG Tab PO SCH (10:51)
[2023-10-03] MEDS: Magnesium Sulfate/Water 2 GM in Premix Bag 1 BAG IV ONE (15:37)
[2023-10-03] MEDS: Potassium Chloride 20 MEQ Tab.ER PO ONE (15:37)
[2023-10-03] MEDS: Phosphorus #1 250 MG Tab PO ONE (15:38)
[2023-10-03] MEDS: Sodium Phosphate 30 MMOLE in Sodium Chloride 0.9% 250 ML IV ONE (15:43)
[2023-10-03 17:34] VITALS: BP 111/61; PULSE 70
== END 2023-10-03 17:15 | disposition home or self-care (01) | DRG 918 ==
LOC: JD.ED 18:47 → JD.MS 10-01 13:05
PROVIDERS: ADMIT Internal Medicine; ATTEND Internal Medicine
DX: T42.6X2A Poisoning by other antiepileptic and sedative-hypnotic drugs, intentional self-harm, initial encounter (principal); T45.0X2A Poisoning by antiallergic and antiemetic drugs, intentional self-harm, initial encounter; T47.0X2A Poisoning by histamine H2-receptor blockers, intentional self-harm, initial encounter; T47.1X2A Poisoning by other antacids and anti-gastric-secretion drugs, intentional self-harm, initial encounter; T44.3X2A Poisoning by other parasympatholytics [anticholinergics and antimuscarinics] and spasmolytics, intentional self-harm, initial encounter; E11.40 Type 2 diabetes mellitus with diabetic neuropathy, unspecified; J44.9 Chronic obstructive pulmonary disease, unspecified; J43.1 Panlobular emphysema; K21.9 Gastro-esophageal reflux disease without esophagitis; E11.42 Type 2 diabetes mellitus with diabetic polyneuropathy; G89.29 Other chronic pain; F41.9 Anxiety disorder, unspecified; M54.9 Dorsalgia, unspecified; E87.6 Hypokalemia; F32.89 Other specified depressive episodes; Z88.5 Allergy status to narcotic agent; Z63.5 Disruption of family by separation and divorce; Z99.89 Dependence on other enabling machines and devices; Z79.84 Long term (current) use of oral hypoglycemic drugs; Z79.899 Other long term (current) drug therapy; Z90.49 Acquired absence of other specified parts of digestive tract; Z90.89 Acquired absence of other organs; Z86.16 Personal history of COVID-19; Z99.81 Dependence on supplemental oxygen
CPT/HCPCS: 36415; 70450; 80048; 80053; 80143; 80179 ×2; 80306; 80307; 84443; 85025; 85027; 93005; J2765; J3480 ×4; J7030; 83735; 84100; 94761; 96365; 96366; 96367; 96368; 96375; 99285-25; A9270-GY; J1650; J2405; J3475; Q3014

== ENCOUNTER 2024-11-25 13:50 | Emergency (ER) | payer MEDICAID ==
[2024-11-25 14:11] VITALS: PULSE 70
[2024-11-25 16:02] VITALS: BP 113/59
== END 2024-11-25 15:55 | disposition home or self-care (01) ==
LOC: JD.ED 13:50
DX: S83.91XA Sprain of unspecified site of right knee, initial encounter (principal); J44.9 Chronic obstructive pulmonary disease, unspecified; E11.40 Type 2 diabetes mellitus with diabetic neuropathy, unspecified; K21.9 Gastro-esophageal reflux disease without esophagitis; F17.210 Nicotine dependence, cigarettes, uncomplicated; Z88.5 Allergy status to narcotic agent; Z79.899 Other long term (current) drug therapy; Z79.84 Long term (current) use of oral hypoglycemic drugs; Z86.16 Personal history of COVID-19; Z90.49 Acquired absence of other specified parts of digestive tract; X50.1XXA Overexertion from prolonged static or awkward postures, initial encounter; Y93.89 Activity, other specified
CPT/HCPCS: 73562-26-RT; 73562-RT; 99283

== ENCOUNTER 2024-12-09 19:58 | Emergency (ER) | payer MEDICAID, OTHER ==
[2024-12-09 20:19] VITALS: PULSE 73
[2024-12-09] MEDS ORDERED: Sodium Chloride 0.9% 10 ML Syringe FLUSH PRN (21:00)
[2024-12-09 21:12] LABS: BASOPHILS ABSOLUTE AUTO 0.1 K/mm3 (0.0-0.2); BASOPHILS PERCENT AUTO 0.7 % (0.0-1.0); EOSINOPHILS ABSOLUTE AUTO 0.2 K/mm3 (0.0-0.4); EOSINOPHILS PERCENT AUTO 2.8 % (0.0-6.0); IMMATURE GRAN ABSOLUTE AUTO 0.02 K/mm3 (0.00-0.05); IMMATURE GRAN PERCENT AUTO 0.3 % (0.0-0.4); LYMPHOCYTES ABSOLUTE AUTO 1.3 K/mm3 (1.0-4.8); LYMPHOCYTES PERCENT AUTO 17.0 % (24.0-44.0); MEAN PLATELET VOLUME 9.8 fl (9.4-12.3); MONOCYTES ABSOLUTE AUTO 0.5 K/mm3 (0.0-0.8); MONOCYTES PERCENT AUTO 6.1 % (0.0-8.0); NEUTROPHILS ABSOLUTE AUTO 5.6 K/mm3 (1.8-7.7); NEUTROPHILS PERCENT AUTO 73.1 % (41.0-71.0); NRBC ABSOLUTE 0.00 (0.00-0.02); NRBC PERCENT 0.0 % (0.0-0.2); PLATELET COUNT,PLT 304 K/mm3 (150-400); RED BLOOD CELL COUNT 5.15 M/mm3 (4.10-5.30); WHITE BLOOD CELL COUNT,WBC 7.60 K/mm3 (3.9-11.3)
[2024-12-09 21:31] LABS: A/G RATIO 0.8 (1-2); ALANINE AMINOTRANSFERASE,ALT 21.0 U/L (14-59); ASPARTATE AMNIOTRANSFERASE,AST 14.0 U/L (15-37); BILIRUBIN TOTAL 0.5 mg/dL (0.2-1.0); BLOOD UREA NITROGEN,BUN 6.0 mg/dL (7-18); CARBON DIOXIDE,CO2 27.0 mEq/L (21-32); CHLORIDE,CL 108.0 mEq/L (98-107); CREATININE 0.8 mg/dL (0.55-1.02); EST CRCL DRUG DOSING (CG) 60.31 mL/min; ESTIMATED GFR 83.0 mL/min (>60); GLUCOSE RANDOM 124.0 mg/dL (70-99); POTASSIUM,K 3.7 mEq/L (3.5-5.1); PROTEIN TOTAL,TP 6.6 g/dl (6.4-8.2); SODIUM,NA 143.0 mEq/L (136-145)
[2024-12-09] MEDS: SUMAtriptan 6 MG/0.5 ML SDV SUBCUT ONE (22:56)
[2024-12-10] MEDS: SUMAtriptan 6 MG/0.5 ML SDV SUBCUT ONE (01:47)
[2024-12-10 03:28] VITALS: BP 135/67
== END 2024-12-10 03:15 | disposition home or self-care (01) ==
LOC: JD.ED 19:58
DX: G43.909 Migraine, unspecified, not intractable, without status migrainosus (principal); J44.9 Chronic obstructive pulmonary disease, unspecified; K21.9 Gastro-esophageal reflux disease without esophagitis; E11.9 Type 2 diabetes mellitus without complications; Z86.16 Personal history of COVID-19; Z90.49 Acquired absence of other specified parts of digestive tract; Z79.899 Other long term (current) drug therapy; Z88.5 Allergy status to narcotic agent; Z79.84 Long term (current) use of oral hypoglycemic drugs
CPT/HCPCS: 36415; 80053; 83735; 84703; 85025; 96372; 99283; J3030; J7030; 99284